=== PATIENT | male | born 1955 | race Caucasian/White ===

== ENCOUNTER 2017-05-30 08:22 | Inpatient (IN) | payer BC, OTHER ==
[2017-05-30] MEDS ORDERED: ACETAMINOPHEN TAB 500 MG TAB PO STA (08:43)
--- NOTE | 2017-05-30 08:47 | ED ---
General Adult HPI - General Chief complaint: Upper Respiratory Infection Stated complaint: Chills,non productive cough Time Seen by Provider: 05/30/17 08:35 Source: patient, RN notes reviewed Mode of arrival: ambulatory Limitations: no limitations - History of Present Illness Initial comments: Patient is a 61-year-old male presents to the emergency room for evaluation. Patient states the past week he's been waking up with cold chills. Patient states that he's been having a worsening cough over the past week. Patient states he usually has a smoker's cough for the past 20 years. Patient does admit that he smokes about a pack per day. Patient states the cough is very dry. Patient states he woke up this morning feeling very cold with chills. Patient states he tried to take a bath with no relief of symptoms. Patient arrived here with a fever of 102.3F. Patient denies taking anything for his symptoms. Patient states he woke up and he felt like he was short of breath and increased congestion so he decided to come in to be evaluated. Patient does state that he had a heart attack last year. Patient takes a baby aspirin per day plus Plavix. Patient states he did not take his medications this morning. Patient denies headache. Patient states he has nasal congestion. Patient denies chest pain. Patient denies nausea or vomiting. Patient denies ear pain or throat pain. - Related Data Home Medications Medication Instructions Recorded Confirmed Aspirin [Adult Low Dose Aspirin EC] 81 mg PO HS 05/30/17 05/30/17 Atorvastatin [Lipitor] 40 mg PO HS 05/30/17 05/30/17 Clopidogrel [Plavix] 75 mg PO HS 05/30/17 05/30/17 Lisinopril [Prinivil] 5 mg PO DAILY 05/30/17 05/30/17 Metoprolol Tartrate 25 mg PO BID 05/30/17 05/30/17 [place]-3/Dha/Epa/Fish Oil [Fish Oil 1 cap PO HS 05/30/17 05/30/17 500 mg Softgel] Omeprazole [PriLOSEC] 40 mg PO DAILY 05/30/17 05/30/17 Vitamin E 100 unit PO HS 05/30/17 05/30/17 Allergies Allergy/AdvReac Type Severity Reaction Status Date / Time No Known Allergies Allergy Verified 05/30/17 08:45 Review of Systems ROS Statement: Those systems with pertinent positive or pertinent negative responses have been documented in the HPI. ROS Other: All systems not noted in ROS Statement are negative. Past Medical History Past Medical History: Coronary Artery Disease (CAD), Myocardial Infarction (AK) , Pneumonia History of Any Multi-Drug Resistant Organisms: None Reported Past Surgical History: Back Surgery, Heart Catheterization With Stent Past Psychological History: No Psychological Hx Reported Smoking Status: Current every day smoker Past Alcohol Use History: None Reported Past Drug Use History: None Reported - Past Family History Father Family Medical History: Myocardial Infarction ([place]), Pneumonia Additional Family Medical History / Comment(s): Father at the age of 52 yrs from a AK/pneumonia. Mother Family Medical History: Myocardial Infarction (AK) Additional Family Medical History / Comment(s): Mother at the age of 67yrs from a AK. General Exam - General Exam Comments Initial Comments: Sitting exam room, no acute distress. Limitations: no limitations General appearance: alert, in no apparent distress Head exam: Present: atraumatic, normocephalic, normal inspection Eye exam: Present: normal appearance, PERRL, EOMI Pupils: Present: normal accommodation ENT exam: Present: normal exam, normal oropharynx, mucous membranes moist, TM's normal bilaterally, normal external ear exam Neck exam: Present: normal inspection, full ROM. Absent: tenderness, lymphadenopathy Respiratory exam: Present: normal lung sounds bilaterally. Absent: respiratory distress Cardiovascular Exam: Present: normal rhythm, tachycardia, normal heart sounds GI/Abdominal exam: Present: soft, normal bowel sounds. Absent: distended, tenderness, guarding, rebound, rigid Extremities exam: Present: normal inspection Back exam: Present: normal inspection Neurological exam: Present: alert, oriented X3, CN II-XII intact, normal gait Psychiatric exam: Present: normal affect, normal mood Skin exam: Present: warm, dry, intact, normal color. Absent: rash Course Vital Signs 05/30/17 05/30/17 05/30/17 08:29 08:59 09:29 Temperature 102.2 F H Pulse Rate 125 H 118 H Respiratory 24 Rate Blood Pressure 116/67 116/61 131/65 O2 Sat by Pulse 96 96 Oximetry 05/30/17 05/30/17 05/30/17 10:29 11:12 11:27 Temperature 101.4 F H Pulse Rate 110 H 112 H Respiratory 18 Rate Blood Pressure 108/59 110/65 O2 Sat by Pulse 95 95 Oximetry 05/30/17 12:58 Temperature 102.3 F H Pulse Rate 96 Respiratory 16 Rate Blood Pressure 110/69 O2 Sat by Pulse 98 Oximetry EKG Findings - EKG Comments: EKG Findings:: Sinus tachycardia, ventricular rate 119 bpm, NV interval 148 ms, QRS duration 92 ms, QT/QTC to 304/427 ms Medical Decision Making - Medical Decision Making Patient is a 61-year-old male presents to the emergency room for evaluation of fever, congestion and cough. WBC elevated. Lactate elevated. Temperature on arrival was 102.3F. Triangular opacity noted on chest x-ray. CT angios chest ordered to rule out pulmonary embolism. No pulmonary embolism noted. Patient will be treated for pneumonia. Case discussed with Dr. Sales. Dr. Sales discussed case with Dr. Nixon who agreed to admit patient. - Lab Data Result diagrams: 05/30/17 09:06 05/30/17 09:06 Lab Results 05/30/17 05/30/17 05/30/17 Range/Units 09:06 09:06 09:06 WBC 19.6 H (3.8-10.6) k/uL RBC 5.68 (4.30-5.90) m/uL Hgb 15.1 (13.0-17.5) gm/dL Hct 45.1 (39.0-53.0) % MCV 79.4 L (80.0-100.0) fL MCH 26.6 (25.0-35.0) pg MCHC 33.6 (31.0-37.0) g/dL RDW 14.3 (11.5-15.5) % Plt Count 248 (150-450) k/uL Neutrophils % 89 % Lymphocytes % 4 % Monocytes % 5 % Eosinophils % 0 % Basophils % 0 % Neutrophils # 17.5 H (1.3-7.7) k/uL Lymphocytes # 0.9 L (1.0-4.8) k/uL Monocytes # 1.0 (0-1.0) k/uL Eosinophils # 0.0 (0-0.7) k/uL Basophils # 0.1 (0-0.2) k/uL PT (9.0-12.0) sec INR (<1.1) APTT (22.0-30.0) sec D-Dimer (<0.60) mg/L FEU Sodium 139 (137-145) mmol/L Potassium 4.0 (3.5-5.1) mmol/L Chloride 106 (98-107) mmol/L Carbon Dioxide 23 (22-30) mmol/L Anion Gap 10 mmol/L BUN 13 (9-20) mg/dL Creatinine 0.96 (0.66-1.25) mg/dL Est GFR (MDRD) Af Amer >60 (>60 ml/min/1.73 sqM) Est GFR (MDRD) Non-Af >60 (>60 ml/min/1.73 sqM) Glucose 129 H (74-99) mg/dL Plasma Lactic Acid Lee (0.7-2.0) mmol/L Calcium 8.9 (8.4-10.2) mg/dL Total Bilirubin 0.9 (0.2-1.3) mg/dL AST 21 (17-59) U/L ALT 30 (21-72) U/L Alkaline Phosphatase 83 (38-126) U/L Total Creatine Kinase 152 (55-170) U/L CK-MB (CK-2) 0.6 (0.0-2.4) ng/mL CK-MB (CK-2) Rel Index 0.4 Troponin I <0.012 (0.000-0.034) ng/mL Total Protein 7.1 (6.3-8.2) g/dL Albumin 4.0 (3.5-5.0) g/dL Urine Color Urine Appearance (Clear) Urine pH (5.0-8.0) Ur Specific [place] (1.001-1.035) Urine Protein (Negative) Urine Glucose (UA) (Negative) Urine Ketones (Negative) Urine Blood (Negative) Urine Nitrite (Negative) Urine Bilirubin (Negative) Urine Urobilinogen (<2.0) mg/dL Ur Leukocyte Esterase (Negative) Urine RBC (0-5) /hpf Urine WBC (0-5) /hpf Urine Mucus (None) /hpf 05/30/17 05/30/17 05/30/17 Range/Units 09:06 09:06 09:06 WBC (3.8-10.6) k/uL RBC (4.30-5.90) m/uL Hgb (13.0-17.5) gm/dL Hct (39.0-53.0) % MCV (80.0-100.0) fL MCH (25.0-35.0) pg MCHC (31.0-37.0) g/dL RDW (11.5-15.5) % Plt Count (150-450) k/uL Neutrophils % % Lymphocytes % % Monocytes % % Eosinophils % % Basophils % % Neutrophils # (1.3-7.7) k/uL Lymphocytes # (1.0-4.8) k/uL Monocytes # (0-1.0) k/uL Eosinophils # (0-0.7) k/uL Basophils # (0-0.2) k/uL PT 12.1 H (9.0-12.0) sec INR 1.2 (<1.1) APTT 26.2 (22.0-30.0) sec D-Dimer 0.85 H (<0.60) mg/L FEU Sodium (137-145) mmol/L Potassium (3.5-5.1) mmol/L Chloride (98-107) mmol/L Carbon Dioxide (22-30) mmol/L Anion Gap mmol/L BUN (9-20) mg/dL Creatinine (0.66-1.25) mg/dL Est GFR (MDRD) Af Amer (>60 ml/min/1.73 sqM) Est GFR (MDRD) Non-Af (>60 ml/min/1.73 sqM) Glucose (74-99) mg/dL Plasma Lactic Acid Lee 2.3 H* (0.7-2.0) mmol/L Calcium (8.4-10.2) mg/dL Total Bilirubin (0.2-1.3) mg/dL AST (17-59) U/L ALT (21-72) U/L Alkaline Phosphatase (38-126) U/L Total Creatine Kinase (55-170) U/L CK-MB (CK-2) (0.0-2.4) ng/mL CK-MB (CK-2) Rel Index Troponin I (0.000-0.034) ng/mL Total Protein (6.3-8.2) g/dL Albumin (3.5-5.0) g/dL Urine Color Urine Appearance (Clear) Urine pH (5.0-8.0) Ur Specific [place] (1.001-1.035) Urine Protein (Negative) Urine Glucose (UA) (Negative) Urine Ketones (Negative) Urine Blood (Negative) Urine Nitrite (Negative) Urine Bilirubin (Negative) Urine Urobilinogen (<2.0) mg/dL Ur Leukocyte Esterase (Negative) Urine RBC (0-5) /hpf Urine WBC (0-5) /hpf Urine Mucus (None) /hpf 05/30/17 Range/Units 09:33 WBC (3.8-10.6) k/uL RBC (4.30-5.90) m/uL Hgb (13.0-17.5) gm/dL Hct (39.0-53.0) % MCV (80.0-100.0) fL MCH (25.0-35.0) pg MCHC (31.0-37.0) g/dL RDW (11.5-15.5) % Plt Count (150-450) k/uL Neutrophils % % Lymphocytes % % Monocytes % % Eosinophils % % Basophils % % Neutrophils # (1.3-7.7) k/uL Lymphocytes # (1.0-4.8) k/uL Monocytes # (0-1.0) k/uL Eosinophils # (0-0.7) k/uL Basophils # (0-0.2) k/uL PT (9.0-12.0) sec INR (<1.1) APTT (22.0-30.0) sec D-Dimer (<0.60) mg/L FEU Sodium (137-145) mmol/L Potassium (3.5-5.1) mmol/L Chloride (98-107) mmol/L Carbon Dioxide (22-30) mmol/L Anion Gap mmol/L BUN (9-20) mg/dL Creatinine (0.66-1.25) mg/dL Est GFR (MDRD) Af Amer (>60 ml/min/1.73 sqM) Est GFR (MDRD) Non-Af (>60 ml/min/1.73 sqM) Glucose (74-99) mg/dL Plasma Lactic Acid Lee (0.7-2.0) mmol/L Calcium (8.4-10.2) mg/dL Total Bilirubin (0.2-1.3) mg/dL AST (17-59) U/L ALT (21-72) U/L Alkaline Phosphatase (38-126) U/L Total Creatine Kinase (55-170) U/L CK-MB (CK-2) (0.0-2.4) ng/mL CK-MB (CK-2) Rel Index Troponin I (0.000-0.034) ng/mL Total Protein (6.3-8.2) g/dL Albumin (3.5-5.0) g/dL Urine Color Yellow Urine Appearance Clear (Clear) Urine pH 5.5 (5.0-8.0) Ur Specific [place] 1.018 (1.001-1.035) Urine Protein Negative (Negative) Urine Glucose (UA) Negative (Negative) Urine Ketones Negative (Negative) Urine Blood Small H (Negative) Urine Nitrite Negative (Negative) Urine Bilirubin Negative (Negative) Urine Urobilinogen <2.0 (<2.0) mg/dL Ur Leukocyte Esterase Negative (Negative) Urine RBC 8 H (0-5) /hpf Urine WBC 1 (0-5) /hpf Urine Mucus Rare H (None) /hpf - Radiology Data Radiology results: report reviewed, image reviewed Disposition Clinical Impression: Pneumonia Disposition: ADMITTED IP TO THIS [facility] Condition: Stable Decision Date: 05/30/17
[2017-05-30] MEDS: SODIUM CHLORIDE 0.9% 500 ML IV SCH ×2 (09:18→11:19)
[2017-05-30 09:33] LABS: Basophils # (A) 0.1 k/uL (0-0.2); Basophils % (A) 0 %; CH 26.6; CHCM 33.6; Eosinophils % (A) 0 %; HCT 45.1 % (39.0-53.0); HDW 2.42; HGB 15.1 gm/dL (13.0-17.5); Luc # (Auto) 0.16; Luc % (Auto) 1; Lymphocytes # (A) 0.9 k/uL (1.0-4.8); Lymphocytes % (A) 4 %; MCH 26.6 pg (25.0-35.0); MCHC 33.6 g/dL (31.0-37.0); MCV 79.4 fL (80.0-100.0); Mean Platelet Volume 8.9; Monocytes % (A) 5 %; Neutrophils # (A) 17.5 k/uL (1.3-7.7); Neutrophils % (A) 89 %; RBC 5.68 m/uL (4.30-5.90); RDW 14.3 % (11.5-15.5); WBC 19.6 k/uL (3.8-10.6); WBC (Perox) 19.21
[2017-05-30 09:40] LABS: ALT 30 U/L (21-72); AST 21 U/L (17-59); Alkaline Phosphatase 83 U/L (38-126); Anion Gap 10 mmol/L; Blood Urea Nitrogen 13 mg/dL (9-20); Calcium 8.9 mg/dL (8.4-10.2); Carbon Dioxide 23 mmol/L (22-30); Chloride 106 mmol/L (98-107); Glucose 129 mg/dL (74-99); Non-African American GFR(MDRD) >60 (>60 ml/min/1.73 sqM); Sodium 139 mmol/L (137-145); Total Bilirubin 0.9 mg/dL (0.2-1.3); Total Protein 7.1 g/dL (6.3-8.2)
[2017-05-30 09:48] LABS: INR 1.2 (<1.1); Partial Thromboplastin Time 26.2 sec (22.0-30.0); Prothrombin Time 12.1 sec (9.0-12.0)
[2017-05-30 10:04] LABS: Appearance,Urine Clear (Clear); Bilirubin,Urine Negative (Negative); Glucose,Urine (UA) Negative (Negative); Ketones,Urine Negative (Negative); Leukocyte Esterase,Urine Negative (Negative); Mucus,Urine Rare /hpf; Nitrite,Urine Negative (Negative); PH, Urine 5.5 (5.0-8.0); Particle Count 1473; Protein,Urine Negative (Negative); RBC,Urine 8 /hpf (0-5); Specific Gravity,Urine 1.018 (1.001-1.035); UA Billing (MACRO vs. MICRO) MICRO; Urobilinogen,Urine <2.0 mg/dL (<2.0); WBC,Urine 1 /hpf (0-5)
--- NOTE | 2017-05-30 10:09 | XR ---
EXAMINATION TYPE: XR chest 2V DATE OF EXAM: 05/30/2017 COMPARISON: NONE HISTORY: Fever 102 degrees with shortness of breath. TECHNIQUE: Frontal and lateral views of the chest are obtained. FINDINGS: There is triangular shaped opacity anterior lung base on lateral view less well seen on fr ontal view. No large pleural effusion or pneumothorax is present bilaterally. The cardiac silhouette size is within normal limits. The osseous structures are intact. IMPRESSION: Nonspecific triangular shaped opacity. Area of acute infiltrate and/or atelectasis canno t be excluded without prior comparison.
[2017-05-30] MEDS ORDERED: LEVOFLOXACIN 750MG-D5W PMX 750 MG in DEXTROSE/WATER 1 150ML.BAG IVPB STA (10:32)
[2017-05-30] MEDS ORDERED: IPRATROPIUM-ALBUTEROL 3 ML NEB INHALATION PRN (10:41)
[2017-05-30] MEDS ORDERED: PNEUMONIA PROTOCOL UTILIZED 1 EACH MISC PO PRN (10:41)
[2017-05-30] MEDS ORDERED: RX INFO: IV CONTRAST WAS GIVEN 1 EACH MISC MISCELLANE PRN ×2 (10:46→14:47)
[2017-05-30] MEDS ORDERED: SODIUM CHLORIDE 0.9% 2,000 ML IV ONE (10:54)
--- NOTE | 2017-05-30 11:33 | CT ---
EXAMINATION TYPE: CT angio chest DATE OF EXAM: 05/30/2017 COMPARISON: Chest x-ray earlier today HISTORY: Chills, non productive cough, fever, and tachycardia per patient. Chest pain per order. CT DLP: 649.1 mGycm. Automated Exposure Control for Dose Reduction was Utilized. CONTRAST: CTA scan of the thorax is performed with IV Contrast, patient injected with 100 mL of Omnipaque 350, pulmonary embolism protocol. MIP Images are created on CT scanner and reviewed. FINDINGS: LUNGS: Underlying emphysematous change is felt present with subpleural bleb and bulla formation and r eticulation in bilateral upper lobes. A few scattered small nodules are seen, for reference is 5 x 3 mm nodule on axial image 80 right middle lobe. No pleural effusion or pneumothorax is present bilater ally. No suspicious groundglass opacity or consolidation is seen. Triangular shape opacity correlates with prominent right anterior pericardial fat pad. MEDIASTINUM: There is markedly suboptimal bolus with most of injected contrast in left heart system a nd pooling in left brachiocephalic vein and SVC. Exam is essentially nondiagnostic for pulmonary embo lism There are no greater than 1 cm hilar or mediastinal lymph nodes. No cardiomegaly or pericardia l effusion is seen. Coronary artery calcification proximal LAD near axial image 78 is noted. OTHER: Dependent density in gallbladder favor small stones or sludge near axial image 164. Liver is d iffusely low dense suggesting fatty infiltration. There is 2.4 cm simple appearing cyst laterally mid pole level left kidney on axial image 172. IMPRESSION: 1. Nondiagnostic for pulmonary embolism. 2. Mild underlying emphysematous change without suspicious acute pulmonary process.
[2017-05-30] MEDS: LISINOPRIL 5 MG TAB PO SCH (11:40)
[2017-05-30] MEDS: CLOPIDOGREL 75 MG TAB PO SCH (11:43)
[2017-05-30] MEDS ORDERED: BUTALB/APAP/CAFF 50-325-40MG TAB PO STA (11:57)
--- NOTE | 2017-05-30 13:04 | P.HPIM ---
History of Present Illness H&P Date: 05/30/17 Chief Complaint: Sepsis, pneumonia, COPD, CAD, hypertension 61-year-old male one of Dr. Marshall patient with past medical history of CAD post NC angioplasty and stent placement last year history of chronic smoking history of hypertension hyperlipidemia who apparently did not feel good in the last 24 hours developed to have fever and chills on Tuesday symptoms become much worse patient is having significant shortness of breath with dyspnea ended up coming to [facility] department at [facility] where was seen and evaluated his temperature continued be continue to be 102. With elevated d-dimer ended up going for CTA result came back negative for PE. Patient clinically has pneumonia cannot be find on chest x-ray or CAT scan his lactic acid slightly but elevated as well and looks septic. Blood culture was done patient will be started on gram-negative coverage with empiric antibiotics was start him on updraft treatment O2m be hospitalized consult infectious disease awaiting for the final blood culture. Urine came back negative and examining patient all over his body could not feel her find any spot of infection cellulitis abscess or lymph node enlargement. Review of Systems Constitutional: Reports anorexia, Reports chronic pain, Reports daytime sleepiness, Reports fatigue, Reports malaise, Reports night sweats, Reports poor appetite, Reports weakness, Reports weight loss, Denies as per HPI, Denies chills, Denies chronic headaches, Denies fever, Denies lethargy, Denies sweats, Denies weight gain Eyes: bilateral as per HPI Ears: bilateral: decreased hearing Ears, nose, mouth and throat: Reports ant. neck pain, Reports dental pain, Reports headache, Reports nasal congestion, Reports nasal discharge, Reports sinus pain, Reports sinus pressure, Reports swelling in mouth, Reports swelling in throat, Reports sore throat, Reports voice changes, Denies as per HPI, Denies bleeding gums, Denies dysphagia, Denies epistaxis, Denies hoarseness, Denies mouth pain, Denies neck fullness/pressure, Denies neck lump, Denies nose pain, Denies odynophagia, Denies post-nasal drip, Denies vertigo Cardiovascular: Reports chest pain, Reports claudication, Reports decreased exercise tolerance, Reports lightheadedness, Reports orthopnea, Reports palpitations, Reports paroxysmal nocturnal dyspnea, Denies as per HPI, Denies dyspnea on exertion, Denies edema, Denies high blood pressure, Denies irregular heart beat, Denies leg edema, Denies phlebitis, Denies rapid heart beat, Denies shortness of breath, Denies syncope Respiratory: Reports congestion, Reports cough, Reports cough with sputum, Reports dyspnea, Reports excessive sputum, Reports pain on inspiration, Reports respiratory infections, Reports wheezing, Denies as per HPI, Denies hemoptysis, Denies home oxygen, Denies pain, Denies pleurisy, Denies sleep apnea, Denies snoring Gastrointestinal: Reports abdominal pain, Reports bloating, Reports constipation , Reports dyspepsia, Reports indigestion, Reports nausea, Reports vomiting, Denies as per HPI, Denies belching, Denies BRBPR, Denies change in bowel habits , Denies coffee ground emesis, Denies diarrhea, Denies early satiety, Denies excessive gas, Denies heartburn, Denies hematemesis, Denies hematochezia, Denies jaundice, Denies lactose intolerance, Denies loss of appetite, Denies melena Genitourinary: Reports hematuria, Reports nocturia, Reports polyuria, Denies as per HPI, Denies decreased libido, Denies difficulties fathering child, Denies discharge, Denies dysuria, Denies erectile dysfunction, Denies flank pain, Denies genital pain, Denies genital sores, Denies impotence, Denies incontinence , Denies kidney stones, Denies testicular lump, Denies testicular pain, Denies urinary frequency, Denies urinary hesitancy, Denies urinary retention Musculoskeletal: Reports loss of height, Reports low back pain, Reports myalgias , Reports neck pain, Denies as per HPI, Denies arm numbness/tingling, Denies atrophy, Denies fractures, Denies frequent falls, Denies gait dysfunction, Denies hot joints, Denies leg numbness/tingling, Denies limitation of motion, Denies morning stiffness, Denies muscle cramps, Denies muscle weakness, Denies neck stiffness, Denies prior amputations, Denies redness of joints, Denies shooting arm pain, Denies shooting leg pain Integumentary: Reports pruritus, Reports rash, Denies as per HPI, Denies acne, Denies boils, Denies brittle nails, Denies change in hair/nails, Denies color changes, Denies darkening of skin, Denies depigmentation, Denies dryness, Denies foot/leg ulcers, Denies growths, Denies hirsutism, Denies lesions, Denies onychomycosis, Denies sores, Denies striae, Denies unusual bruising, Denies wounds Neurological: Denies as per HPI, Denies aphasia, Denies ataxia, Denies balance difficulties, Denies burning pain, Denies change in mentation, Denies change in smell/taste, Denies change in speech, Denies confusion, Denies convulsions, Denies double vision, Denies gait dysfunction, Denies head injury, Denies headaches, Denies hearing difficulties, Denies lack of coordination, Denies loss of vision, Denies memory loss, Denies migraines, Denies motor disturbance, Denies numbness, Denies paralysis, Denies paresthesias, Denies seizures, Denies sensory deficit, Denies spasticity, Denies syncope, Denies tic, Denies tingling , Denies transient paralysis, Denies tremors, Denies vertigo, Denies weakness, Denies visual changes Psychiatric: Reports anhedonia, Reports anxiety, Denies as per HPI, Denies anxiety attacks, Denies change in appetite, Denies change in libido, Denies change in sleep habits, Denies confusion, Denies depression, Denies difficulty concentrating, Denies disorientation, Denies hallucinations, Denies hopelessness , Denies hypersomnia, Denies insomnia, Denies irritability, Denies memory loss, Denies mood swings, Denies paranoia, Denies sadness/tearfulness, Denies sleep disturbances, Denies suicidal ideation Endocrine: Reports fatigue, Reports flushing, Reports heat intolerance, Denies as per HPI, Denies cold intolerance, Denies deepening of the voice, Denies excessive sweating, Denies excessive thirst, Denies high blood sugars, Denies increase in ring/shoe/hat size, Denies low blood sugars, Denies nocturia, Denies palpitations, Denies polydipsia, Denies polyphagia, Denies polyuria, Denies proptosis, Denies recent glucocorticoid use, Denies thyroid mass, Denies weight change Hematologic/Lymphatic: Reports easy bruising, Denies as per HPI, Denies easy bleeding, Denies lymphadenopathy, Denies lymphedema, Denies thrombophilia Allergic/Immunologic: Reports allergic rhinitis, Denies as per HPI, Denies anaphylaxis, Denies angioedema, Denies gluten intolerance, Denies persistent infections, Denies seasonal allergies, Denies urticaria, Denies wheezing Past Medical History Past Medical History: Coronary Artery Disease (CAD), Myocardial Infarction (NC) , Pneumonia History of Any Multi-Drug Resistant Organisms: None Reported Past Surgical History: Back Surgery, Heart Catheterization With Stent Past Psychological History: No Psychological Hx Reported Smoking Status: Current every day smoker Past Alcohol Use History: None Reported Past Drug Use History: None Reported Medications and Allergies Home Medications Medication Instructions Recorded Confirmed Type Aspirin [Adult Low Dose Aspirin EC] 81 mg PO HS 05/30/17 05/30/17 History Atorvastatin [Lipitor] 40 mg PO HS 05/30/17 05/30/17 History Clopidogrel [Plavix] 75 mg PO HS 05/30/17 05/30/17 History Lisinopril [Prinivil] 5 mg PO DAILY 05/30/17 05/30/17 History Metoprolol Tartrate 25 mg PO BID 05/30/17 05/30/17 History [place]-3/Dha/Epa/Fish Oil [Fish Oil 1 cap PO HS 05/30/17 05/30/17 History 500 mg Softgel] Omeprazole [PriLOSEC] 40 mg PO DAILY 05/30/17 05/30/17 History Vitamin E 100 unit PO 05/30/17 05/30/17 History Allergies Allergy/AdvReac Type Severity Reaction Status Date / Time No Known Allergies Allergy Verified 05/30/17 08:45 Physical Exam Vitals: Vital Signs Temp Pulse Resp BP Pulse Ox 05/30/17 11:27 101.4 F H 05/30/17 11:12 112 H 18 110/65 95 05/30/17 10:29 110 H 108/59 95 05/30/17 09:29 131/65 05/30/17 08:59 118 H 116/61 96 05/30/17 08:29 102.2 F H 125 H 24 116/67 96 Intake and Output 05/29/17 05/30/17 05/30/17 22:59 06:59 14:59 Other: Weight 111.13 kg Patient Weight 05/31/17 06:59 Weight 111.13 kg - Constitutional General appearance: no average body habitus, cooperative, no disheveled, no mild distress, no morbidly obese, no acute distress, no obese, no severe distress, no thin - EENT Eyes: no abnormal pupil, no anicteric sclerae, no disc margins sharp, no edentulous, no EOMI, no PERRLA, no fundus normal, no photophobia, no dentition normal, no poor dentition, no ptosis, no scleral icterus, normal appearance ENT: no hard of hearing, no hearing grossly normal, no NA/AT, normal oropharynx , no other, no pharyngeal erythema, no thrush, no tonsillar exudates, no tonsillar swelling Ears: bilateral: normal, bulging - Neck Neck: no lymphadenopathy, normal ROM, no other, no rigidity, no stridor, no thyromegaly Carotids: bilateral: upstroke normal Thyroid: bilateral: normal size - Respiratory Respiratory: bilateral: diminished, dullness, rales, rhonchi, wheezing - Cardiovascular Rhythm: regular Heart sounds: normal: S1, S2 Abnormal Heart Sounds: systolic murmur - Gastrointestinal General gastrointestinal: no absent bowel sounds, decreased bowel sounds, distended, no hepatomegaly, no hyperactive bowel sounds, no normal bowel sounds , no organomegaly, no rigid, no scaphoid, no soft, no splenomegaly, no tenderness, no umbilical hernia, no ventral hernia - Integumentary Integumentary: no calor, no cellulitis, no cyanotic, no decreased turgor, no flushed, no jaundiced, normal, no normal turgor, pale, rash, no ulcer - Neurologic Neurologic: CNII-XII intact - Musculoskeletal Musculoskeletal: gait normal, generalized weakness, strength equal bilaterally, no right sided weakness, no left sided weakness - Psychiatric Psychiatric: A&O x's 3, appropriate affect, no intact judgment & insight Results CBC & Chem 7: 05/30/17 09:06 05/30/17 09:06 Labs: Abnormal Lab Results - Last 24 Hours (Table) 05/30/17 05/30/17 05/30/17 Range/Units 09:06 09:06 09:06 WBC 19.6 H (3.8-10.6) k/uL MCV 79.4 L (80.0-100.0) fL Neutrophils # 17.5 H (1.3-7.7) k/uL Lymphocytes # 0.9 L (1.0-4.8) k/uL PT (9.0-12.0) sec D-Dimer (<0.60) mg/L FEU Glucose 129 H (74-99) mg/dL Plasma Lactic Acid Lee 2.3 H* (0.7-2.0) mmol/L Urine Blood (Negative) Urine RBC (0-5) /hpf Urine Mucus (None) /hpf 05/30/17 05/30/17 05/30/17 Range/Units 09:06 09:06 09:33 WBC (3.8-10.6) k/uL MCV (80.0-100.0) fL Neutrophils # (1.3-7.7) k/uL Lymphocytes # (1.0-4.8) k/uL PT 12.1 H (9.0-12.0) sec D-Dimer 0.85 H (<0.60) mg/L FEU Glucose (74-99) mg/dL Plasma Lactic Acid Lee (0.7-2.0) mmol/L Urine Blood Small H (Negative) Urine RBC 8 H (0-5) /hpf Urine Mucus Rare H (None) /hpf Thrombosis Risk Factor Assmnt - DVT/VTE Prophylaxis DVT/VTE Prophylaxis: Pharmacologic Prophylaxis ordered, Mechanical Prophylaxis ordered Assessment and Plan Plan: 1 sepsis with SIRS: Not a clear etiology so far but most likely pneumonia in origin awaiting for the final blood culture patient will be on Zosyn and Levaquin we'll consult infectious disease continue to watch his culture sputum and urine culture be done as well. 2 clinical pneumonitis: Finding on a clinical basis mostly in the bases both side especially in the right side patient be in gram if coverage continue updrafts and O2. 3 COPD with mild exacerbation: With patient's current condition patient will be on smaller dose of Solu-Medrol at 40 mg every 8 along with Pulmicort and DuoNeb continue O2 as well my consult pulmonary. 4 CAD post NC post angioplasty and stent placement patient is seen cardiology regular basis continue secondary prevention with metoprolol lisinopril Plavix and Lipitor. 5 hypertension: Remain well controlled on Prinivil 5 mg a day and metoprolol 25 g twice a day. 6 hyperlipidemia: Continue Lipitor at 40 mg daily. 7 GI prophylaxis/severe GERD patient remain on Prilosec 40 mg a day. 8 hyperglycemia: Continue patient on Accu-Chek with sliding scales coverage. 9 hematuria: Not a clear etiology again will do urine culture and the order abdominal ultrasound for any finding of abscess infection or stone. 10 GI prophylaxis: On Prilosec. 11 DVT prophylaxis: Patient will be on Lovenox 40 mg subcutaneous daily. CODE STATUS: Full code. Expectation from this admission: Patient be in the hospital for more than 2 nights.
[2017-05-30] MEDS ORDERED: IBUPROFEN 600 MG TAB PO STA (13:14)
[2017-05-30] MEDS ORDERED: IV VANCOMYCIN PER PHARMACY 1 EACH MISC MISCELLANE PRN (13:48)
[2017-05-30] MEDS ORDERED: VANCOMYCIN 2,250 MG in SODIUM CHLORIDE 0.9% 500 ML IVPB ONE (14:30)
--- NOTE | 2017-05-30 14:47 | P.CONS ---
History of Present Illness - Reason for Consult Consult date: 05/30/17 FUO - History of Present Illness This is a 61-year-old male patient that gives history that he has not been feeling well for the past 24 hours with fever and chill this started on Tuesday and continued to worsen with some shortness of breath. He also had an episode prior to this a few days ago and also had a fever at that time. Patient came into [facility] and was found to have a temperature of 102.2 and leukocytosis of 19.6. He underwent a chest x-ray and CTA of the chest that was nondiagnostic for pulmonary embolism. Mild underlying emphysematous change without suspicious acute pulmonary process. His urinalysis was positive for small amount of blood with RBCs of 8. Initial lactic acid was 2.3 and repeat 1.6. Patient was started on Levaquin and admitted to the [facility] floor. Blood culture has been status received. Urine culture is status received. Patient does state that he has a small amount of sputum production. Review of Systems All systems: negative Constitutional: Reports chills, Reports fatigue, Reports fever, Reports malaise Eyes: denies blurred vision, denies pain Ears, nose, mouth and throat: Denies dental pain, Denies headache, Denies mouth pain, Denies swelling in throat, Denies sore throat, Denies vertigo Cardiovascular: Reports shortness of breath, Denies chest pain, Denies edema, Denies leg edema, Denies lightheadedness, Denies palpitations, Denies paroxysmal nocturnal dyspnea, Denies syncope Respiratory: Reports cough with sputum, Reports dyspnea, Denies cough, Denies excessive sputum, Denies hemoptysis, Denies home oxygen, Denies pain on inspiration, Denies wheezing Gastrointestinal: Denies abdominal pain, Denies diarrhea, Denies nausea, Denies vomiting Genitourinary: Denies dysuria Musculoskeletal: Denies myalgias Integumentary: Denies pruritus, Denies rash Neurological: Denies numbness, Denies weakness Psychiatric: Denies anxiety, Denies depression Endocrine: Denies fatigue, Denies weight change Past Medical History Past Medical History: Coronary Artery Disease (CAD), Myocardial Infarction (NC) , Pneumonia Additional Past Medical History / Comment(s): Pneumonia twice as a child. Last Myocardial Infarction Date:: 2015 History of Any Multi-Drug Resistant Organisms: None Reported Past Surgical History: Back Surgery, Heart Catheterization With Stent Additional Past Surgical History / Comment(s): PCI with stent in 2016 at [facility], colonoscopy. Past Anesthesia/Blood Transfusion Reactions: No Reported Reaction, Motion Sickness Date of Last Stent Placement:: 2015 Smoking Status: Current every day smoker - Past Family History Father Family Medical History: Myocardial Infarction (NC), Pneumonia Additional Family Medical History / Comment(s): Father at the age of 52 yrs from a NC/pneumonia. Mother Family Medical History: Myocardial Infarction (NC) Additional Family Medical History / Comment(s): Mother at the age of 67yrs from a NC. Medications and Allergies Home Medications Medication Instructions Recorded Confirmed Type Aspirin [Adult Low Dose Aspirin EC] 81 mg PO HS 05/30/17 05/30/17 History Atorvastatin [Lipitor] 40 mg PO HS 05/30/17 05/30/17 History Clopidogrel [Plavix] 75 mg PO HS 05/30/17 05/30/17 History Lisinopril [Prinivil] 5 mg PO DAILY 05/30/17 05/30/17 History Metoprolol Tartrate 25 mg PO BID 05/30/17 05/30/17 History [place]-3/Dha/Epa/Fish Oil [Fish Oil 1 cap PO HS 05/30/17 05/30/17 History 500 mg Softgel] Omeprazole [PriLOSEC] 40 mg PO DAILY 05/30/17 05/30/17 History Vitamin E 100 unit PO HS 05/30/17 05/30/17 History Allergies Allergy/AdvReac Type Severity Reaction Status Date / Time No Known Allergies Allergy Verified 05/30/17 08:45 Physical Exam Vitals: Vital Signs Temp Pulse Resp BP Pulse Ox 05/30/17 12:58 102.3 F H 96 16 110/69 98 05/30/17 11:27 101.4 F H 05/30/17 11:12 112 H 18 110/65 95 05/30/17 10:29 110 H 108/59 95 05/30/17 09:29 131/65 05/30/17 08:59 118 H 116/61 96 05/30/17 08:29 102.2 F H 125 H 24 116/67 96 Intake and Output 05/29/17 05/30/17 05/30/17 22:59 06:59 14:59 Intake Total 1000 Balance 1000 Intake: Amount of Fluid Infused ( 1000 ml) Other: Weight 111.13 kg Patient Weight 05/31/17 06:59 Weight 111.13 kg Gen: This is a 61-year-old male. He is on this stretcher in ER and appears to be comfortable and in no acute distress. HEENT: Head is atraumatic, normocephalic. Pupils equal, round. Sclerae is anicteric. Conjunctiva pink. Mucous members of the mouth are moist. No oropharyngeal inflammation. NECK: Supple. No JVD. No lymphadenopathy. No thyromegaly. LUNGS: Clear to auscultation. No wheezes or rhonchi. No intercostal retractions. HEART: Regular rate and rhythm. No murmur. ABDOMEN: Soft. Bowel sounds are present. No masses. No tenderness. No CVA tenderness EXTREMITIES: No pedal edema. No calf tenderness. No calf tenderness. NEUROLOGICAL: Patient is awake, alert and oriented x3. Cranial nerves 2 through 12 are grossly intact. Results Results: Laboratory Results WBC 19.6 k/uL (3.8-10.6) H 05/30/17 09:06 RBC 5.68 m/uL (4.30-5.90) 05/30/17 09:06 Hgb 15.1 gm/dL (13.0-17.5) 05/30/17 09:06 Hct 45.1 % (39.0-53.0) 05/30/17 09:06 MCV 79.4 fL (80.0-100.0) L 05/30/17 09:06 MCH 26.6 pg (25.0-35.0) 05/30/17 09:06 MCHC 33.6 g/dL (31.0-37.0) 05/30/17 09:06 RDW 14.3 % (11.5-15.5) 05/30/17 09:06 Plt Count 248 k/uL (150-450) 05/30/17 09:06 Neutrophils % 89 % 05/30/17 09:06 Lymphocytes % 4 % 05/30/17 09:06 Monocytes % 5 % 05/30/17 09:06 Eosinophils % 0 % 05/30/17 09:06 Basophils % 0 % 05/30/17 09:06 Neutrophils # 17.5 k/uL (1.3-7.7) H 05/30/17 09:06 Lymphocytes # 0.9 k/uL (1.0-4.8) L 05/30/17 09:06 Monocytes # 1.0 k/uL (0-1.0) 05/30/17 09:06 Eosinophils # 0.0 k/uL (0-0.7) 05/30/17 09:06 Basophils # 0.1 k/uL (0-0.2) 05/30/17 09:06 PT 12.1 sec (9.0-12.0) H 05/30/17 09:06 INR 1.2 (<1.1) 05/30/17 09:06 APTT 26.2 sec (22.0-30.0) 05/30/17 09:06 D-Dimer 0.85 mg/L FEU (<0.60) H 05/30/17 09:06 Sodium 139 mmol/L (137-145) 05/30/17 09:06 Potassium 4.0 mmol/L (3.5-5.1) 05/30/17 09:06 Chloride 106 mmol/L (98-107) 05/30/17 09:06 Carbon Dioxide 23 mmol/L (22-30) 05/30/17 09:06 Anion Gap 10 mmol/L 05/30/17 09:06 BUN 13 mg/dL (9-20) 05/30/17 09:06 Creatinine 0.96 mg/dL (0.66-1.25) 05/30/17 09:06 Est GFR (MDRD) Af Amer >60 (>60 ml/min/1.73 sqM) 05/30/17 09:06 Est GFR (MDRD) Non-Af >60 (>60 ml/min/1.73 sqM) 05/30/17 09:06 Glucose 129 mg/dL (74-99) H 05/30/17 09:06 Plasma Lactic Acid Lee 1.6 mmol/L (0.7-2.0) 05/30/17 12:20 Calcium 8.9 mg/dL (8.4-10.2) 05/30/17 09:06 Total Bilirubin 0.9 mg/dL (0.2-1.3) 05/30/17 09:06 AST 21 U/L (17-59) 05/30/17 09:06 ALT 30 U/L (21-72) 05/30/17 09:06 Alkaline Phosphatase 83 U/L (38-126) 05/30/17 09:06 Total Protein 7.1 g/dL (6.3-8.2) 05/30/17 09:06 Albumin 4.0 g/dL (3.5-5.0) 05/30/17 09:06 Urine Color Yellow 05/30/17 09:33 Urine Appearance Clear (Clear) 05/30/17 09:33 Urine pH 5.5 (5.0-8.0) 05/30/17 09:33 Ur Specific [place] 1.018 (1.001-1.035) 05/30/17 09:33 Urine Protein Negative (Negative) 05/30/17 09:33 Urine Glucose (UA) Negative (Negative) 05/30/17 09:33 Urine Ketones Negative (Negative) 05/30/17 09:33 Urine Blood Small (Negative) H 05/30/17 09:33 Urine Nitrite Negative (Negative) 05/30/17 09:33 Urine Bilirubin Negative (Negative) 05/30/17 09:33 Urine Urobilinogen <2.0 mg/dL (<2.0) 05/30/17 09:33 Ur Leukocyte Esterase Negative (Negative) 05/30/17 09:33 Urine RBC 8 /hpf (0-5) H 05/30/17 09:33 Urine WBC 1 /hpf (0-5) 05/30/17 09:33 Urine Mucus Rare /hpf (None) H 05/30/17 09:33 CBC & Chem 7: 05/30/17 09:06 05/30/17 09:06 Labs: Abnormal Lab Results - Last 24 Hours (Table) 05/30/17 05/30/17 05/30/17 Range/Units 09:06 09:06 09:06 WBC 19.6 H (3.8-10.6) k/uL MCV 79.4 L (80.0-100.0) fL Neutrophils # 17.5 H (1.3-7.7) k/uL Lymphocytes # 0.9 L (1.0-4.8) k/uL PT (9.0-12.0) sec D-Dimer (<0.60) mg/L FEU Glucose 129 H (74-99) mg/dL Plasma Lactic Acid Lee 2.3 H* (0.7-2.0) mmol/L Urine Blood (Negative) Urine RBC (0-5) /hpf Urine Mucus (None) /hpf 05/30/17 05/30/17 05/30/17 Range/Units 09:06 09:06 09:33 WBC (3.8-10.6) k/uL MCV (80.0-100.0) fL Neutrophils # (1.3-7.7) k/uL Lymphocytes # (1.0-4.8) k/uL PT 12.1 H (9.0-12.0) sec D-Dimer 0.85 H (<0.60) mg/L FEU Glucose (74-99) mg/dL Plasma Lactic Acid Lee (0.7-2.0) mmol/L Urine Blood Small H (Negative) Urine RBC 8 H (0-5) /hpf Urine Mucus Rare H (None) /hpf Assessment and Plan Plan: This is a 61-year-old male who presented to the hospital with signs of sepsis with fever, leukocytosis without clear etiology. CTA of the chest ruled out pneumonia or pulmonary infection. He has been started on treatment for COPD exacerbation. It is noted that he does have some blood in his urine. He is currently on antibiotics the form of Levaquin which will be switched to vancomycin and Zosyn. A CAT scan of the abdomen and pelvis with contrast will be added for tomorrow. Urine culture and blood cultures have been obtained. Continue supportive care. Further conditions as patient progresses. The above dictated assessment and findings were discussed with Dr. Carlos. The impression and plan of care have been directed as dictated. Janay Wise nurse practitioner acting as scribe for Dr. Carlos.
[2017-05-30 15:19] LABS: Creatine Kinase 152 U/L (55-170)
[2017-05-30 15:32] LABS: Creatine Kinase MB 0.6 ng/mL (0.0-2.4); Troponin I <0.012 ng/mL (0.000-0.034)
[2017-05-30] MEDS: IPRATROPIUM-ALBUTEROL 3 ML NEB INHALATION SCH ×2 (15:38→19:56)
[2017-05-30] MEDS: ACETAMINOPHEN TAB 500 MG TAB PO PRN ×2 (16:43→23:51)
[2017-05-30] MEDS: PIPERACILLIN-TAZOBACTAM 3.375 GM in DEXTROSE/WATER 1 50ML.BAG IVPB SCH ×2 (18:24→23:46)
[2017-05-30] MEDS: BUDESONIDE 0.5 MG/2 ML NEBU INHALATION SCH (19:56)
[2017-05-30] MEDS: ATORVASTATIN 40 MG TAB PO SCH (20:15)
[2017-05-30] MEDS: SODIUM CHLORIDE 0.9% 1,000 ML IV SCH (20:15)
[2017-05-30] MEDS: METOPROLOL TARTRATE 25 MG TAB PO SCH (20:15)
[2017-05-30] MEDS: ASPIRIN 81 MG CHEW PO SCH (20:15)
--- NOTE | 2017-05-30 21:23 | P.CON ---
Consult Note - . Consult date: 05/30/17 Assessment/Plan:: This is a 61-year-old male patient that gives history that he has not been feeling well for the past 24 hours with fever and chill this started on Tuesday and continued to worsen with some shortness of breath. He also had an episode prior to this a few days ago and also had a fever at that time. Patient came into [facility] and was found to have a temperature of 102.2 and leukocytosis of 19.6. He underwent a chest x-ray and CTA of the chest that was nondiagnostic for pulmonary embolism. Mild underlying emphysematous change without suspicious acute pulmonary process. His urinalysis was positive for small amount of blood with RBCs of 8. Initial lactic acid was 2.3 and repeat 1.6. Patient was started on Levaquin and admitted to the [facility] floor. Blood culture has been status received. Urine culture is status received. Patient does state that he has a small amount of sputum production. Please see the consult note is dictated by nurse practitioner Mrs. Janay Wise. This is a pleasant 61-year-old gentleman was presenting with evidence of significant fever and chills. Met criteria for sepsis at admission, and continues to feel like he is having a fever. Workup is in progress. Computed tomography scan failed to reveal evidence of a pulmonary embolus or pneumonia. Given his ongoing fever a computed tomography scan of the abdomen and pelvis with oral IV contrast has been requested. The patient does relate that he generally takes either Lomotil or MiraLAX because of his bowel function. This has been going on for a little while. Denies any significant flank pain. Denies zulay dysuria or hematuria. Has noted microscopic hematuria has been found and the computed tomography scan will further evaluate the renal structures also. Intra-abdominal process as the etiology of his fever is of greatest concern at this point in time. Patient has no recent travels, animal exposures or other changes in his home environment that seem to be of concern. We'll monitor cultures and the imaging studies. All cultures in process antibiotic therapy is with piperacillin tazobactam and vancomycin for treatment of his current sepsis until we have further data. I agree with evaluation, assessment and plan is dictated by nurse practitioner Mrs. Janay Wise.
[2017-05-30] MEDS ORDERED: IBUPROFEN 400 MG TAB PO PRN (21:29)
[2017-05-31] MEDS: VANCOMYCIN 2,000 MG in SODIUM CHLORIDE 0.9% 500 ML IVPB SCH ×3 (03:42→22:08)
[2017-05-31] MEDS: SODIUM CHLORIDE 0.9% 1,000 ML IV SCH ×3 (03:50→22:08)
[2017-05-31 07:26] VITALS: RESP 16
[2017-05-31 07:43] LABS: Basophils # (A) 0.1 k/uL (0-0.2); Basophils % (A) 0 %; CH 26.2; CHCM 33.2; Eosinophils % (A) 0 %; HCT 41.6 % (39.0-53.0); HDW 2.39; Luc # (Auto) 0.22; Luc % (Auto) 2; Lymphocytes # (A) 1.3 k/uL (1.0-4.8); Lymphocytes % (A) 9 %; MCH 26.8 pg (25.0-35.0); MCHC 33.8 g/dL (31.0-37.0); MCV 79.2 fL (80.0-100.0); Mean Platelet Volume 8.5; Monocytes # (A) 0.7 k/uL (0-1.0); Monocytes % (A) 5 %; Neutrophils # (A) 11.4 k/uL (1.3-7.7); Neutrophils % (A) 84 %; RBC 5.25 m/uL (4.30-5.90); RDW 14.4 % (11.5-15.5); WBC 13.7 k/uL (3.8-10.6); WBC (Perox) 13.51
[2017-05-31] MEDS: IPRATROPIUM-ALBUTEROL 3 ML NEB INHALATION SCH ×4 (07:47→20:42)
[2017-05-31] MEDS: BUDESONIDE 0.5 MG/2 ML NEBU INHALATION SCH ×2 (07:47→20:42)
[2017-05-31] MEDS: PIPERACILLIN-TAZOBACTAM 3.375 GM in DEXTROSE/WATER 1 50ML.BAG IVPB SCH ×2 (08:02→16:06)
[2017-05-31] MEDS: PANTOPRAZOLE 40 MG TABLET PO SCH (08:04)
[2017-05-31] MEDS: METOPROLOL TARTRATE 25 MG TAB PO SCH ×2 (08:04→20:39)
[2017-05-31] MEDS: LISINOPRIL 5 MG TAB PO SCH (08:04)
[2017-05-31] MEDS: ACETAMINOPHEN TAB 500 MG TAB PO PRN ×3 (08:05→20:25)
[2017-05-31 08:06] LABS: ALT 28 U/L (21-72); AST 27 U/L (17-59); Alkaline Phosphatase 51 U/L (38-126); Anion Gap 9 mmol/L; Blood Urea Nitrogen 11 mg/dL (9-20); Calcium 7.8 mg/dL (8.4-10.2); Carbon Dioxide 19 mmol/L (22-30); Chloride 110 mmol/L (98-107); Glucose 113 mg/dL (74-99); Non-African American GFR(MDRD) >60 (>60 ml/min/1.73 sqM); Potassium 3.8 mmol/L (3.5-5.1); Sodium 138 mmol/L (137-145); Total Bilirubin 1.1 mg/dL (0.2-1.3); Total Protein 5.5 g/dL (6.3-8.2)
[2017-05-31] MEDS ORDERED: LEVOFLOXACIN 750MG-D5W PMX 750 MG in DEXTROSE/WATER 1 150ML.BAG IVPB SCH (09:00)
[2017-05-31] MEDS: IOHEXOL 350 MG/ML 25 ML BOTTLE (ORAL USE) PO PRN ×2 (10:15→11:15)
--- NOTE | 2017-05-31 11:59 | P.PN ---
Subjective 61-year-old male one of Dr. Marshall patient with past medical history of CAD post MD angioplasty and stent placement last year history of chronic smoking history of hypertension hyperlipidemia who apparently did not feel good in the last 24 hours developed to have fever and chills on Tuesday symptoms become much worse patient is having significant shortness of breath with dyspnea ended up coming to demurs department at [facility] where was seen and evaluated his temperature continued be continue to be 102. With elevated d-dimer ended up going for CTA result came back negative for PE. Patient clinically has pneumonia cannot be find on chest x-ray or CAT scan his lactic acid slightly but elevated as well and looks septic. Blood culture was done patient will be started on gram-negative coverage with empiric antibiotics was start him on updraft treatment O2m be hospitalized consult infectious disease awaiting for the final blood culture. Urine came back negative and examining patient all over his body could not feel her find any spot of infection cellulitis abscess or lymph node enlargement. 05/30: Patient has been seen in consultation by Dr. Carlos with recommendations for vancomycin and Zosyn and CAT scan of the abdomen and pelvis with contrast which is scheduled for this afternoon. White count is improved to 13.7. Influenza testing type A and type B negative. The cultures status received, sputum culture status received and urine culture in progress. He has been afebrile since 1500 yesterday but states that he had significant sweats through the night. He is also complaining of loose stools for which probiotics and yogurt recommended. He states he feels a little bit better from yesterday but not much. Objective - Vital Signs Vital signs: Vital Signs Temp 98.6 F 05/31/17 07:00 Pulse 110 H 05/31/17 08:03 Resp 16 05/31/17 07:00 BP 109/68 05/31/17 07:00 Pulse Ox 95 05/31/17 07:50 Intake & Output 05/30/17 05/31/17 05/31/17 18:59 06:59 18:59 Intake Total 1000 1650 Balance 1000 1650 Weight 111.13 kg Intake: Amount of Fluid Infused ( 1000 ml) Intake, IV Titration 1050 Amount Piperacillin-Tazobactam 3 50 .375 gm In Dextrose/Water 1 50ml.bag @ 12.5 mls/hr IVPB Q8HR [facility] Rx#: [id number] Sodium Chloride 0.9% 1, 500 000 ml @ 100 mls/hr IV . Q10H [facility] Rx#:[id number] Vancomycin 2,000 mg In 500 Sodium Chloride 0.9% 500 ml @ 167 mls/hr IVPB Q12H [facility] Rx#:[id number] Oral 600 Other: # Voids 1 - Exam General appearance: no average body habitus, cooperative, no disheveled, no mild distress, no morbidly obese, no acute distress, no obese, no severe distress, no thin - EENT Eyes: no abnormal pupil, no anicteric sclerae, no disc margins sharp, no edentulous, no EOMI, no PERRLA, no fundus normal, no photophobia, no dentition normal, no poor dentition, no ptosis, no scleral icterus, normal appearance ENT: no hard of hearing, no hearing grossly normal, no NA/AT, normal oropharynx , no other, no pharyngeal erythema, no thrush, no tonsillar exudates, no tonsillar swelling Ears: bilateral: normal, bulging - Neck Neck: no lymphadenopathy, normal ROM, no other, no rigidity, no stridor, no thyromegaly Carotids: bilateral: upstroke normal Thyroid: bilateral: normal size - Respiratory Respiratory: bilateral: diminished, dullness, rales, rhonchi, wheezing - Cardiovascular Rhythm: regular Heart sounds: normal: S1, S2 Abnormal Heart Sounds: systolic murmur - Gastrointestinal General gastrointestinal: no absent bowel sounds, decreased bowel sounds, distended, no hepatomegaly, no hyperactive bowel sounds, no normal bowel sounds , no organomegaly, no rigid, no scaphoid, no soft, no splenomegaly, no tenderness, no umbilical hernia, no ventral hernia - Integumentary Integumentary: no calor, no cellulitis, no cyanotic, no decreased turgor, no flushed, no jaundiced, normal, no normal turgor, pale, rash, no ulcer - Neurologic Neurologic: CNII-XII intact - Musculoskeletal Musculoskeletal: gait normal, generalized weakness, strength equal bilaterally, no right sided weakness, no left sided weakness - Psychiatric Psychiatric: A&O x's 3, appropriate affect, no intact judgment & insight - Labs CBC & Chem 7: 05/31/17 07:16 05/31/17 07:16 Labs: Abnormal Lab Results - Last 24 Hours (Table) 05/30/17 05/30/17 05/31/17 Range/Units 09:06 09:33 07:16 WBC 13.7 H (3.8-10.6) k/uL MCV 79.2 L (80.0-100.0) fL Neutrophils # 11.4 H (1.3-7.7) k/uL D-Dimer 0.85 H (<0.60) mg/L FEU Chloride (98-107) mmol/L Carbon Dioxide (22-30) mmol/L Glucose (74-99) mg/dL Calcium (8.4-10.2) mg/dL Total Protein (6.3-8.2) g/dL Albumin (3.5-5.0) g/dL Urine Blood Small H (Negative) Urine RBC 8 H (0-5) /hpf Urine Mucus Rare H (None) /hpf 05/31/17 Range/Units 07:16 WBC (3.8-10.6) k/uL MCV (80.0-100.0) fL Neutrophils # (1.3-7.7) k/uL D-Dimer (<0.60) mg/L FEU Chloride 110 H (98-107) mmol/L Carbon Dioxide 19 L (22-30) mmol/L Glucose 113 H (74-99) mg/dL Calcium 7.8 L (8.4-10.2) mg/dL Total Protein 5.5 L (6.3-8.2) g/dL Albumin 2.8 L (3.5-5.0) g/dL Urine Blood (Negative) Urine RBC (0-5) /hpf Urine Mucus (None) /hpf Microbiology - Last 24 Hours (Table) 05/30/17 09:33 Urine Culture - Preliminary Urine,Clean Catch Assessment and Plan Plan: 1 sepsis with SIRS: FUO, continue Zosyn and vancomycin and Levaquin discontinued. CAT scan of the abdomen and pelvis to be done today. Consult with Dr. Carlos appreciated. 2 clinical pneumonitis not entirely ruled out: Finding on a clinical basis mostly in the bases both side especially in the right side patient be in gram if coverage continue updrafts and O2. 3 COPD with mild exacerbation: With patient's current condition patient will be on smaller dose of Solu-Medrol at 40 mg every 8 along with Pulmicort and DuoNeb continue O2 as well my consult pulmonary. 4 CAD post MD post angioplasty and stent placement patient is seen cardiology regular basis continue secondary prevention with metoprolol lisinopril Plavix and Lipitor. 5 hypertension: Remain well controlled on Prinivil 5 mg a day and metoprolol 25 g twice a day. 6 hyperlipidemia: Continue Lipitor at 40 mg daily. 7 GI prophylaxis/severe GERD patient remain on Prilosec 40 mg a day. 8 hyperglycemia: Continue patient on Accu-Chek with sliding scales coverage. 9 hematuria: Not a clear etiology again will do urine culture and the order abdominal ultrasound for any finding of abscess infection or stone. 10 GI prophylaxis: On Prilosec. 11 DVT prophylaxis: Patient will be on Lovenox 40 mg subcutaneous daily. 12. Diarrhea. Continue to monitor. Probiotics ordered and recommended yogurt with meals. CODE STATUS: Full code. Discharge plan: Return home Impression and plan of care have been directed as dictated by the signing physician. Janay Wise nurse practitioner acting as scribe for signing physician.
[2017-05-31] MEDS ORDERED: LOPERAMIDE 2 MG CAP PO STA (12:03)
--- NOTE | 2017-05-31 12:46 | XR ---
EXAMINATION TYPE: XR chest 2V DATE OF EXAM: 05/31/2017 COMPARISON: Chest x-ray and CTA chest from yesterday HISTORY: Pneumonia per order. TECHNIQUE: Frontal and lateral views of the chest are obtained. FINDINGS: Mild underlying emphysematous change is seen best on recent CT. There is some new patchy b ibasilar atelectasis confirmed on recent CT abdomen study. There is no suspicious new focal air space opacity, pleural effusion, or pneumothorax seen. The cardiac silhouette size is upper limits of nor mal. The osseous structures are intact. IMPRESSION: New patchy bibasilar atelectasis.
--- NOTE | 2017-05-31 13:06 | CT ---
EXAMINATION TYPE: CT abdomen pelvis w con DATE OF EXAM: 05/31/2017 COMPARISON: Correlation CT chest 05/30/2017 HISTORY: 61-year-old male fever of unknown origin TECHNIQUE: Contiguous axial scanning of the abdomen and pelvis following administration of 100 ml Omn ipaque 300 IV contrast. Delayed images through the kidneys and coronal/sagittal reconstructions perf ormed. CT DLP: 1941 mGycm Automated exposure control for dose reduction was used. FINDINGS: Heart is normal size without pericardial effusion. Strandy atelectasis/scarring at the lung bases. Tiny hiatal hernia. The liver is enlarged at 19.0 cm craniocaudal. There may be a component of fatty infiltration. No nancy iary ductal dilatation. Portal venous system is patent. Some layering gallstones are present. The gallbladder is mildly hydropic measuring 4.6 cm wide. No thomason rrounding inflammatory change. Adrenal glands, spleen, and pancreas show no gross abnormal body. Dominant 2.8 cm cyst within the left kidney. Additional smaller hypodensities many of which are too s mall for accurate CT characterization on both sides likely represent additional cysts. No dilated small bowel, free fluid, or free air. Couple borderline-enlarged retroperitoneal lymph nod es measure up to 6 mm. Additional numerous right lower quadrant mesenteric lymph nodes are enlarged m easuring up to 1.1 cm. There is thickening at the terminal ileum, ileocecal region, and moderate tianna atous wall thickening extending to the level of the distal third transverse colon with mild circumfer ential wall thickening extending to the upper descending colon. Along the right in the colon, there i s pericolonic inflammatory fat stranding. Mild symmetric bladder wall thickening. Prostate gland mildly enlarged measuring 4.0 cm wide. Some sm all amount of tracking fluid within the right hemipelvis. No pelvic lymphadenopathy. Bones: Degenerative disc disease at L5-S1. No osseous destructive process. IMPRESSION: 1. Infectious or inflammatory colitis markedly affecting the right hemicolon. There is surrounding in flammatory fat stranding, wall edema, and trace fluid tracking into the pelvis. No abscess or free ai r. 2. Mesenteric lymphadenopathy most numerous in the right lower quadrant measures up to 1.1 cm and is likely reactive. 3 month follow-up to ensure resolution. 3. Cholelithiasis. Mildly hydropic gallbladder probably relates to fasting state. If concern for rajesh y acute cholecystitis, follow-up ultrasound or HIDA scan. 4. Hepatomegaly. There may be a component of fatty infiltration.
[2017-05-31] MEDS: LACTOBACILLUS ACIDOPH & BULGAR 1 EACH PACKET PO SCH ×2 (16:52→22:04)
[2017-05-31 20:23] LABS: Glucose,Whole Blood 110 mg/dL (75-99)
--- NOTE | 2017-05-31 20:25 | P.PN ---
Subjective Principal diagnosis: FUO This is a 61-year-old male patient that gives history that he has not been feeling well for the past 24 hours with fever and chill this started on Tuesday and continued to worsen with some shortness of breath. He also had an episode prior to this a few days ago and also had a fever at that time. Patient came into [facility] and was found to have a temperature of 102.2 and leukocytosis of 19.6. He underwent a chest x-ray and CTA of the chest that was nondiagnostic for pulmonary embolism. Mild underlying emphysematous change without suspicious acute pulmonary process. His urinalysis was positive for small amount of blood with RBCs of 8. Initial lactic acid was 2.3 and repeat 1.6. Patient was started on Levaquin and [facility] floor. Blood culture has been status received. Urine culture negative so far. Because the patient was having some gastrointestinal symptoms before admission computed tomography scan of the abdomen and pelvis has been requested. Patient has noticed an increase amount of his loose stool the day today. Objective - Vital Signs Vital signs: Vital Signs Temp 98.9 F 05/31/17 15:00 Pulse 105 H 05/31/17 15:29 Resp 16 05/31/17 15:00 BP 127/93 05/31/17 15:00 Pulse Ox 95 05/31/17 15:00 Intake & Output 05/31/17 05/31/17 06/01/17 06:59 18:59 06:59 Intake Total 1650 Output Total 4 Balance 1650 -4 Intake: Intake, IV Titration 1050 Amount Piperacillin-Tazobactam 3 50 .375 gm In Dextrose/Water 1 50ml.bag @ 12.5 mls/hr IVPB Q8HR [facility] Rx#: [id number] Sodium Chloride 0.9% 1, 500 000 ml @ 100 mls/hr IV . Q10H [facility] Rx#:[id number] Vancomycin 2,000 mg In 500 Sodium Chloride 0.9% 500 ml @ 167 mls/hr IVPB Q12H [facility] Rx#:[id number] Oral 600 Output: Urine 2 Stool 2 Other: # Voids 1 - Exam Gen: This is a 61-year-old male. He is on this stretcher in ER and appears to be comfortable and in no acute distress. HEENT: Head is atraumatic, normocephalic. Pupils equal, round. Sclerae is anicteric. Conjunctiva pink. Mucous members of the mouth are moist. No oropharyngeal inflammation. NECK: Supple. No JVD. No lymphadenopathy. No thyromegaly. LUNGS: Clear to auscultation. No wheezes or rhonchi. No intercostal retractions. HEART: Regular rate and rhythm. No murmur. ABDOMEN: Soft. Bowel sounds are present. No masses. There is only minimal epigastric tenderness on deep palpation. No CVA tenderness, there is no guarding or rebound. No tenderness in the right lower quadrant left lower quadrant or suprapubic area. EXTREMITIES: No pedal edema. No calf tenderness. No calf tenderness. NEUROLOGICAL: Patient is awake, alert and oriented x3. - Labs CBC & Chem 7: 05/31/17 07:16 05/31/17 07:16 Labs: Abnormal Lab Results - Last 24 Hours (Table) 05/31/17 05/31/17 Range/Units 07:16 07:16 WBC 13.7 H (3.8-10.6) k/uL MCV 79.2 L (80.0-100.0) fL Neutrophils # 11.4 H (1.3-7.7) k/uL Chloride 110 H (98-107) mmol/L Carbon Dioxide 19 L (22-30) mmol/L Glucose 113 H (74-99) mg/dL Calcium 7.8 L (8.4-10.2) mg/dL Total Protein 5.5 L (6.3-8.2) g/dL Albumin 2.8 L (3.5-5.0) g/dL Microbiology - Last 24 Hours (Table) 05/30/17 09:33 Urine Culture - Final Urine,Clean Catch 05/31/17 15:19 Gram Stain - Final Sputum Sputum Culture - Final Not Reportable 05/30/17 12:16 Blood Culture - Preliminary Blood No Growth after 24 hours 05/30/17 09:06 Blood Culture - Preliminary Blood No Growth after 24 hours Laboratory Results WBC 13.7 k/uL (3.8-10.6) H 05/31/17 07:16 RBC 5.25 m/uL (4.30-5.90) 05/31/17 07:16 Hgb 14.0 gm/dL (13.0-17.5) 05/31/17 07:16 Hct 41.6 % (39.0-53.0) 05/31/17 07:16 MCV 79.2 fL (80.0-100.0) L 05/31/17 07:16 MCH 26.8 pg (25.0-35.0) 05/31/17 07:16 MCHC 33.8 g/dL (31.0-37.0) 05/31/17 07:16 RDW 14.4 % (11.5-15.5) 05/31/17 07:16 Plt Count 198 k/uL (150-450) 05/31/17 07:16 Neutrophils % 84 % 05/31/17 07:16 Lymphocytes % 9 % 05/31/17 07:16 Monocytes % 5 % 05/31/17 07:16 Eosinophils % 0 % 05/31/17 07:16 Basophils % 0 % 05/31/17 07:16 Neutrophils # 11.4 k/uL (1.3-7.7) H 05/31/17 07:16 Lymphocytes # 1.3 k/uL (1.0-4.8) 05/31/17 07:16 Monocytes # 0.7 k/uL (0-1.0) 05/31/17 07:16 Eosinophils # 0.0 k/uL (0-0.7) 05/31/17 07:16 Basophils # 0.1 k/uL (0-0.2) 05/31/17 07:16 PT 12.1 sec (9.0-12.0) H 05/30/17 09:06 INR 1.2 (<1.1) 05/30/17 09:06 APTT 26.2 sec (22.0-30.0) 05/30/17 09:06 D-Dimer 0.85 mg/L FEU (<0.60) H 05/30/17 09:06 Sodium 138 mmol/L (137-145) 05/31/17 07:16 Potassium 3.8 mmol/L (3.5-5.1) 05/31/17 07:16 Chloride 110 mmol/L (98-107) H 05/31/17 07:16 Carbon Dioxide 19 mmol/L (22-30) L 05/31/17 07:16 Anion Gap 9 mmol/L 05/31/17 07:16 BUN 11 mg/dL (9-20) 05/31/17 07:16 Creatinine 0.98 mg/dL (0.66-1.25) 05/31/17 07:16 Est GFR (MDRD) Af Amer >60 (>60 ml/min/1.73 sqM) 05/31/17 07:16 Est GFR (MDRD) Non-Af >60 (>60 ml/min/1.73 sqM) 05/31/17 07:16 Glucose 113 mg/dL (74-99) H 05/31/17 07:16 Plasma Lactic Acid Lee 1.6 mmol/L (0.7-2.0) 05/30/17 12:20 Calcium 7.8 mg/dL (8.4-10.2) L 05/31/17 07:16 Total Bilirubin 1.1 mg/dL (0.2-1.3) 05/31/17 07:16 AST 27 U/L (17-59) 05/31/17 07:16 ALT 28 U/L (21-72) 05/31/17 07:16 Alkaline Phosphatase 51 U/L (38-126) 05/31/17 07:16 Total Creatine Kinase 152 U/L (55-170) 05/30/17 09:06 CK-MB (CK-2) 0.6 ng/mL (0.0-2.4) 05/30/17 09:06 CK-MB (CK-2) Rel Index 0.4 05/30/17 09:06 Troponin I <0.012 ng/mL (0.000-0.034) 05/30/17 09:06 Total Protein 5.5 g/dL (6.3-8.2) L 05/31/17 07:16 Albumin 2.8 g/dL (3.5-5.0) L 05/31/17 07:16 Urine Color Yellow 05/30/17 09:33 Urine Appearance Clear (Clear) 05/30/17 09:33 Urine pH 5.5 (5.0-8.0) 05/30/17 09:33 Ur Specific [place] 1.018 (1.001-1.035) 05/30/17 09:33 Urine Protein Negative (Negative) 05/30/17 09:33 Urine Glucose (UA) Negative (Negative) 05/30/17 09:33 Urine Ketones Negative (Negative) 05/30/17 09:33 Urine Blood Small (Negative) H 05/30/17 09:33 Urine Nitrite Negative (Negative) 05/30/17 09:33 Urine Bilirubin Negative (Negative) 05/30/17 09:33 Urine Urobilinogen <2.0 mg/dL (<2.0) 05/30/17 09:33 Ur Leukocyte Esterase Negative (Negative) 05/30/17 09:33 Urine RBC 8 /hpf (0-5) H 05/30/17 09:33 Urine WBC 1 /hpf (0-5) 05/30/17 09:33 Urine Mucus Rare /hpf (None) H 05/30/17 09:33 Influenza Type A RNA Not Detected (Not Detectd) 05/30/17 15:00 Influenza Type B (PCR) Not Detected (Not Detectd) 05/30/17 15:00 Microbiology 05/30/17 09:33 Urine,Clean Catch Urine Culture - Final 05/31/17 15:19 Sputum Gram Stain - Final 05/31/17 15:19 Sputum Sputum Culture - Final Not Reportable 05/30/17 12:16 Blood Blood Culture - Preliminary No Growth after 24 hours 05/30/17 09:06 Blood Blood Culture - Preliminary No Growth after 24 hours Assessment and Plan (1) Fever Narrative/Plan: Pleasant 61-year-old male presents to Hospital with significant fever. He was quite symptomatic and his significant other directed him to hospital. At admission he 102 fever. And significant leukocytosis. He also met sirs criteria and was admitted. With hydration and antibiotic therapy he is now showing improvement. Has had a change that at home he was having much more constipation than requiring mag citrate and Dulcolax. Now is having frequent loose stools that are nonbloody. Computed tomography scan of the abdomen and pelvis was requested. Showing evidence of significant colitis from the cecum to the transverse colon. And potentially also cholelithiasis and possibly cholecystitis. Stool analysis will be sent although it is not likely he has C. diff since he does not have antecedent antibiotic therapy. The stool cultures will also be obtained. Case is discussed with the attending and surgical consult will be requested given the abnormality seen on the computed tomography scan and potential need for follow-up. Fever is now better controlled Leukocytosis is improving Other than the diarrhea the patient is feeling somewhat better today. Status: Acute (2) Leucocytosis Status: Acute (3) Diarrhea Status: Acute
[2017-05-31] MEDS: ASPIRIN 81 MG CHEW PO SCH (20:39)
[2017-05-31] MEDS: CLOPIDOGREL 75 MG TAB PO SCH (20:39)
[2017-05-31] MEDS: ATORVASTATIN 40 MG TAB PO SCH (20:40)
[2017-06-01] MEDS: PIPERACILLIN-TAZOBACTAM 3.375 GM in DEXTROSE/WATER 1 50ML.BAG IVPB SCH ×4 (00:56→23:19)
[2017-06-01 07:13] LABS: Glucose,Whole Blood 118 mg/dL (75-99)
[2017-06-01] MEDS: IPRATROPIUM-ALBUTEROL 3 ML NEB INHALATION SCH ×4 (07:23→18:57)
[2017-06-01] MEDS: BUDESONIDE 0.5 MG/2 ML NEBU INHALATION SCH ×2 (07:24→18:57)
[2017-06-01] MEDS: SODIUM CHLORIDE 0.9% 1,000 ML IV SCH ×2 (07:34→14:24)
[2017-06-01] MEDS: ACETAMINOPHEN TAB 500 MG TAB PO PRN ×2 (07:35→16:32)
[2017-06-01] MEDS: LACTOBACILLUS ACIDOPH & BULGAR 1 EACH PACKET PO SCH ×3 (07:36→22:03)
[2017-06-01] MEDS: METOPROLOL TARTRATE 25 MG TAB PO SCH ×2 (07:37→22:03)
[2017-06-01] MEDS: PANTOPRAZOLE 40 MG TABLET PO SCH (07:37)
[2017-06-01] MEDS: LISINOPRIL 5 MG TAB PO SCH (07:37)
[2017-06-01 07:48] LABS: CHCM 33.2; HCT 36.9 % (39.0-53.0); HDW 2.53; HGB 12.4 gm/dL (13.0-17.5); MCH 26.5 pg (25.0-35.0); MCHC 33.7 g/dL (31.0-37.0); MCV 78.7 fL (80.0-100.0); Mean Platelet Volume 8.2; RBC 4.69 m/uL (4.30-5.90); RDW 14.4 % (11.5-15.5)
[2017-06-01 07:55] LABS: Anion Gap 8 mmol/L; Blood Urea Nitrogen 6 mg/dL (9-20); Carbon Dioxide 22 mmol/L (22-30); Chloride 111 mmol/L (98-107); Glucose 122 mg/dL (74-99); Non-African American GFR(MDRD) >60 (>60 ml/min/1.73 sqM); Potassium 3.5 mmol/L (3.5-5.1); Sodium 141 mmol/L (137-145)
--- NOTE | 2017-06-01 11:18 | P.GSCN ---
History of Present Illness Consult date: 06/01/17 Reason for Consult: Colitis History of present illness: Patient came in with complaints of fevers and malaise and some vague right- sided pain. The patient was actually somewhat constipated at home but during the hospitalization started to have some loose stools. CAT scan was performed which showed right sided colitis extending from the terminal ileum to the midtransverse colon. No sick contacts. No recent travel. Cultures are so far negative. Never had any rectal bleeding. As much better at this time. Was having fevers as high as 102. Leukocytosis as high as 19. he he is now afebrile with a normal white blood cell count. No abdominal pain presently. He is tolerating regular food. Last colonoscopy was normal and that was 3 years ago. Past Medical History Past Medical History: Coronary Artery Disease (CAD), Myocardial Infarction (CA) , Pneumonia Additional Past Medical History / Comment(s): Pneumonia twice as a child. Last Myocardial Infarction Date:: 2015 History of Any Multi-Drug Resistant Organisms: None Reported Past Surgical History: Back Surgery, Heart Catheterization With Stent Additional Past Surgical History / Comment(s): PCI with stent in 2016 at [facility], colonoscopy. Past Anesthesia/Blood Transfusion Reactions: No Reported Reaction, Motion Sickness Date of Last Stent Placement:: 2015 Past Psychological History: No Psychological Hx Reported Smoking Status: Current every day smoker Past Alcohol Use History: None Reported Past Drug Use History: None Reported - Past Family History Father Family Medical History: Myocardial Infarction (CA), Pneumonia Additional Family Medical History / Comment(s): Father at the age of 52 yrs from a CA/pneumonia. Mother Family Medical History: Myocardial Infarction (CA) Additional Family Medical History / Comment(s): Mother at the age of 67yrs from a CA. Medications and Allergies Home Medications Medication Instructions Recorded Confirmed Type Aspirin [Adult Low Dose Aspirin EC] 81 mg PO HS 05/30/17 05/30/17 History Atorvastatin [Lipitor] 40 mg PO HS 05/30/17 05/30/17 History Clopidogrel [Plavix] 75 mg PO HS 05/30/17 05/30/17 History Lisinopril [Prinivil] 5 mg PO DAILY 05/30/17 05/30/17 History Metoprolol Tartrate 25 mg PO BID 05/30/17 05/30/17 History [place]-3/Dha/Epa/Fish Oil [Fish Oil 1 cap PO HS 05/30/17 05/30/17 History 500 mg Softgel] Omeprazole [PriLOSEC] 40 mg PO DAILY 05/30/17 05/30/17 History Vitamin E 100 unit PO HS 05/30/17 05/30/17 History Allergies Allergy/AdvReac Type Severity Reaction Status Date / Time No Known Allergies Allergy Verified 05/30/17 08:45 Surgical - Exam Vital Signs Temp Pulse Resp BP Pulse Ox 102.2 F H 125 H 24 116/67 96 05/30/17 08:29 05/30/17 08:29 05/30/17 08:29 05/30/17 08:29 05/30/17 08:29 Physical exam: General: Well-developed, well-nourished HEENT: Normocephalic, sclerae nonicteric Abdomen: Nontender, nondistended Extremities: No edema Neuro: Alert and oriented Results - Labs 06/01/17 07:21 06/01/17 07:21 Abnormal Lab Results - Last 24 Hours (Table) 05/31/17 06/01/17 06/01/17 Range/Units 20:21 07:12 07:21 Hgb (13.0-17.5) gm/dL Hct (39.0-53.0) % MCV (80.0-100.0) fL Chloride 111 H (98-107) mmol/L BUN 6 L (9-20) mg/dL Glucose 122 H (74-99) mg/dL POC Glucose (mg/dL) 110 H 118 H (75-99) mg/dL Calcium 8.0 L (8.4-10.2) mg/dL 06/01/17 Range/Units 07:21 Hgb 12.4 L (13.0-17.5) gm/dL Hct 36.9 L (39.0-53.0) % MCV 78.7 L (80.0-100.0) fL Chloride (98-107) mmol/L BUN (9-20) mg/dL Glucose (74-99) mg/dL POC Glucose (mg/dL) (75-99) mg/dL Calcium (8.4-10.2) mg/dL Microbiology - Last 24 Hours (Table) 05/31/17 20:25 Stool for WBCs - Final Stool 05/31/17 20:25 Stool Culture - Preliminary Stool 05/30/17 09:33 Urine Culture - Final Urine,Clean Catch 05/31/17 15:19 Gram Stain - Final Sputum Sputum Culture - Final Not Reportable 05/30/17 12:16 Blood Culture - Preliminary Blood No Growth after 24 hours 05/30/17 09:06 Blood Culture - Preliminary Blood No Growth after 24 hours Diabetes panel 06/01/17 Range/Units 07:21 Sodium 141 (137-145) mmol/L Potassium 3.5 (3.5-5.1) mmol/L Chloride 111 H (98-107) mmol/L Carbon Dioxide 22 (22-30) mmol/L BUN 6 L (9-20) mg/dL Creatinine 0.85 (0.66-1.25) mg/dL Glucose 122 H (74-99) mg/dL Calcium 8.0 L (8.4-10.2) mg/dL Calcium panel 06/01/17 Range/Units 07:21 Calcium 8.0 L (8.4-10.2) mg/dL Pituitary panel 06/01/17 Range/Units 07:21 Sodium 141 (137-145) mmol/L Potassium 3.5 (3.5-5.1) mmol/L Chloride 111 H (98-107) mmol/L Carbon Dioxide 22 (22-30) mmol/L BUN 6 L (9-20) mg/dL Creatinine 0.85 (0.66-1.25) mg/dL Glucose 122 H (74-99) mg/dL Calcium 8.0 L (8.4-10.2) mg/dL Adrenal panel 06/01/17 Range/Units 07:21 Sodium 141 (137-145) mmol/L Potassium 3.5 (3.5-5.1) mmol/L Chloride 111 H (98-107) mmol/L Carbon Dioxide 22 (22-30) mmol/L BUN 6 L (9-20) mg/dL Creatinine 0.85 (0.66-1.25) mg/dL Glucose 122 H (74-99) mg/dL Calcium 8.0 L (8.4-10.2) mg/dL Assessment and Plan (1) Colitis Narrative/Plan: CAT scan was reviewed and does reveal inflammatory changes involving the right side of the colon. Etiology at this point remains unclear but may represent infectious colitis. Await stool cultures. Continue antibiotics per infectious disease. Follow closely with you. No need at this time for colonoscopy as the patient's symptoms recur or increase. We'll follow with you. Status: Acute
[2017-06-01] MEDS: VANCOMYCIN 2,000 MG in SODIUM CHLORIDE 0.9% 500 ML IVPB SCH (14:23)
--- NOTE | 2017-06-01 15:02 | P.PN ---
Subjective Principal diagnosis: Sepsis, clinical pneumonitis, colitis, COPD, CAD, hypertension, hyperlipidemia 61-year-old male one of Dr. Marshall patient with past medical history of CAD post CT angioplasty and stent placement last year history of chronic smoking history of hypertension hyperlipidemia who apparently did not feel good in the last 24 hours developed to have fever and chills on Tuesday symptoms become much worse patient is having significant shortness of breath with dyspnea ended up coming to demurs department at [facility] where was seen and evaluated his temperature continued be continue to be 102. With elevated d-dimer ended up going for CTA result came back negative for PE. Patient clinically has pneumonia cannot be find on chest x-ray or CAT scan his lactic acid slightly but elevated as well and looks septic. Blood culture was done patient will be started on gram-negative coverage with empiric antibiotics was start him on updraft treatment O2m be hospitalized consult infectious disease awaiting for the final blood culture. Urine came back negative and examining patient all over his body could not feel her find any spot of infection cellulitis abscess or lymph node enlargement. 05/30: Patient has been seen in consultation by Dr. Carlos with recommendations for vancomycin and Zosyn and CAT scan of the abdomen and pelvis with contrast which is scheduled for this afternoon. White count is improved to 13.7. Influenza testing type A and type B negative. The cultures status received, sputum culture status received and urine culture in progress. He has been afebrile since 1500 yesterday but states that he had significant sweats through the night. He is also complaining of loose stools for which probiotics and yogurt recommended. He states he feels a little bit better from yesterday but not much. 06/01/2017: CT of the abdomen showed right-sided colitis, patient was seen Dr. norwood who agreed to treat this as an infectious colitis for now patient will require colonoscopy at some point in the next few weeks. Clinically is much better not running any fever and chills will continue IV antibiotics at least till tomorrow patient will require to be on oral antibiotic including Flagyl and Levaquin for 7-10 days after his discharge. Objective - Vital Signs Vital signs: Vital Signs Temp 98.3 F 06/01/17 07:00 Pulse 100 06/01/17 11:12 Resp 16 06/01/17 08:00 BP 109/71 06/01/17 07:00 Pulse Ox 97 06/01/17 07:00 Intake & Output 05/31/17 06/01/17 06/01/17 18:59 06:59 18:59 Intake Total 590 Output Total 4 Balance -4 590 Weight 111.13 kg Intake: Oral 590 Output: Urine 2 Stool 2 Other: Voiding Method Toilet # Voids 2 2 - Constitutional General appearance: Present: cooperative, no acute distress. Absent: average body habitus, disheveled, mild distress, morbidly obese, obese, severe distress , thin - EENT Eyes: Present: normal appearance. Absent: abnormal pupil, anicteric sclerae, disc margins sharp, edentulous, EOMI, PERRLA, fundus normal, photophobia, dentition normal, poor dentition, ptosis, scleral icterus ENT: Present: normal oropharynx. Absent: hard of hearing, hearing grossly normal, NA/AT, other, pharyngeal erythema, thrush, tonsillar exudates, tonsillar swelling Ears: bilateral: normal - Neck Neck: Present: normal ROM. Absent: lymphadenopathy, other, rigidity, stridor, thyromegaly Carotids: bilateral: upstroke normal Thyroid: bilateral: normal size - Respiratory Respiratory: bilateral: CTA - Cardiovascular Rhythm: regular Heart sounds: normal: S1, S2 Abnormal Heart Sounds: Present: systolic murmur - Gastrointestinal General gastrointestinal: Present: distended, normal bowel sounds, tenderness. Absent: absent bowel sounds, decreased bowel sounds, hepatomegaly, hyperactive bowel sounds, organomegaly, rigid, scaphoid, soft, splenomegaly, umbilical hernia, ventral hernia - Integumentary Integumentary: Present: normal, pale, rash. Absent: calor, cellulitis, cyanotic , decreased turgor, flushed, jaundiced, normal turgor, ulcer - Neurologic Neurologic: Present: CNII-XII intact - Musculoskeletal Musculoskeletal: Present: gait normal, generalized weakness, strength equal bilaterally - Psychiatric Psychiatric: Present: A&O x's 3, appropriate affect - Labs CBC & Chem 7: 06/01/17 07:21 06/01/17 07:21 Labs: Abnormal Lab Results - Last 24 Hours (Table) 05/31/17 06/01/17 06/01/17 Range/Units 20:21 07:12 07:21 Hgb (13.0-17.5) gm/dL Hct (39.0-53.0) % MCV (80.0-100.0) fL Chloride 111 H (98-107) mmol/L BUN 6 L (9-20) mg/dL Glucose 122 H (74-99) mg/dL POC Glucose (mg/dL) 110 H 118 H (75-99) mg/dL Calcium 8.0 L (8.4-10.2) mg/dL 06/01/17 Range/Units 07:21 Hgb 12.4 L (13.0-17.5) gm/dL Hct 36.9 L (39.0-53.0) % MCV 78.7 L (80.0-100.0) fL Chloride (98-107) mmol/L BUN (9-20) mg/dL Glucose (74-99) mg/dL POC Glucose (mg/dL) (75-99) mg/dL Calcium (8.4-10.2) mg/dL Microbiology - Last 24 Hours (Table) 05/30/17 12:16 Blood Culture - Preliminary Blood No Growth after 48 hours 05/30/17 09:06 Blood Culture - Preliminary Blood No Growth after 48 hours 05/31/17 20:25 Stool for WBCs - Final Stool 05/31/17 20:25 Stool Culture - Preliminary Stool 05/30/17 09:33 Urine Culture - Final Urine,Clean Catch 05/31/17 15:19 Gram Stain - Final Sputum Sputum Culture - Final Not Reportable Assessment and Plan Plan: 1 sepsis with SIRS: Not a clear etiology so far but most likely pneumonia in origin awaiting for the final blood culture patient will be on Zosyn and Levaquin we'll consult infectious disease continue to watch his culture sputum and urine culture be done as well. Surprisingly finding still consistent with the infectious colitis, patient remain on current IV antibiotic will switch him to oral by tomorrow. 2 clinical pneumonitis: Finding on a clinical basis mostly in the bases both side especially in the right side patient be in gram if coverage continue updrafts and O2. Still doing better clinically on oral antibiotics. 3 infectious colitis: His stools sample still negative currently continue patient on IV antibiotic with switch him to oral Flagyl and Levaquin. [address] post angioplasty and stent placement patient is seen cardiology regular basis continue secondary prevention with metoprolol lisinopril Plavix and Lipitor. 5 hypertension: Remain well controlled on Prinivil 5 mg a day and metoprolol 25 g twice a day. 6 hyperlipidemia: Continue Lipitor at 40 mg daily. 7 GI prophylaxis/severe GERD patient remain on Prilosec 40 mg a day. 8 hyperglycemia: Continue patient on Accu-Chek with sliding scales coverage. 9 hematuria: Not a clear etiology again will do urine culture and the order abdominal ultrasound for any finding of abscess infection or stone. 10 COPD with mild exacerbation: With patient's current condition patient will be on smaller dose of Solu-Medrol at 40 mg every 8 along with Pulmicort and DuoNeb continue O2 as well my consult pulmonary.
--- NOTE | 2017-06-01 21:50 | P.PN ---
Subjective Principal diagnosis: FUO This is a 61-year-old male patient that gives history that he has not been feeling well for the past 24 hours with fever and chill this started on Tuesday and continued to worsen with some shortness of breath. He also had an episode prior to this a few days ago and also had a fever at that time. Patient came into [facility] and was found to have a temperature of 102.2 and leukocytosis of 19.6. He underwent a chest x-ray and CTA of the chest that was nondiagnostic for pulmonary embolism. Mild underlying emphysematous change without suspicious acute pulmonary process. His urinalysis was positive for small amount of blood with RBCs of 8. Initial lactic acid was 2.3 and repeat 1.6. Patient was started on Levaquin and admitted to the [facility] floor. Blood culture has been status received. Urine culture negative so far. Because the patient was having some gastrointestinal symptoms before admission computed tomography scan of the abdomen and pelvis has been requested. Patient has now improved. Antibiotic therapies without resolution of his fever. A dose of Imodium as helped his significant diarrhea 3 soft small stools only today. He is definitely feeling better. Has been seen by surgery. Objective - Vital Signs Vital signs: Vital Signs Temp 98.2 F 06/01/17 15:00 Pulse 60 06/01/17 19:03 Resp 16 06/01/17 16:00 BP 100/66 06/01/17 15:00 Pulse Ox 92 L 06/01/17 19:03 Intake & Output 06/01/17 06/01/17 06/02/17 06:59 18:59 06:59 Intake Total 590 Output Total 3 Balance 590 -3 Weight 111.13 kg Intake: Oral 590 Output: Stool 3 Other: Voiding Method Toilet # Voids 2 4 - Exam Gen: This is a 61-year-old male. He is on this stretcher in ER and appears to be comfortable and in no acute distress. HEENT: Head is atraumatic, normocephalic. Pupils equal, round. Sclerae is anicteric. Conjunctiva pink. Mucous members of the mouth are moist. No oropharyngeal inflammation. NECK: Supple. No JVD. No lymphadenopathy. No thyromegaly. LUNGS: Clear to auscultation. No wheezes or rhonchi. No intercostal retractions. HEART: Regular rate and rhythm. No murmur. ABDOMEN: Soft. Bowel sounds are present. No masses. There is only minimal epigastric tenderness on deep palpation. No CVA tenderness, there is no guarding or rebound. No tenderness in the right lower quadrant left lower quadrant or suprapubic area. EXTREMITIES: No pedal edema. No calf tenderness. No calf tenderness. NEUROLOGICAL: Patient is awake, alert and oriented x3. - Labs CBC & Chem 7: 06/01/17 07:21 06/01/17 07:21 Labs: Abnormal Lab Results - Last 24 Hours (Table) 06/01/17 06/01/17 06/01/17 Range/Units 07: 07:21 07:21 Hgb 12.4 L (13.0-17.5) gm/dL Hct 36.9 L (39.0-53.0) % MCV 78.7 L (80.0-100.0) fL Chloride 111 H (98-107) mmol/L BUN 6 L (9-20) mg/dL Glucose 122 H (74-99) mg/dL POC Glucose (mg/dL) 118 H (75-99) mg/dL Calcium 8.0 L (8.4-10.2) mg/dL Microbiology - Last 24 Hours (Table) 06/01/17 19:00 Sputum Culture - Preliminary Sputum 05/30/17 12:16 Blood Culture - Preliminary Blood No Growth after 48 hours 05/30/17 09:06 Blood Culture - Preliminary Blood No Growth after 48 hours 05/31/17 20:25 Stool for WBCs - Final Stool 05/31/17 20:25 Stool Culture - Preliminary Stool 05/30/17 09:33 Urine Culture - Final Urine,Clean Catch 05/31/17 15:19 Gram Stain - Final Sputum Sputum Culture - Final Not Reportable Laboratory Results WBC 10.0 k/uL (3.8-10.6) 06/01/17 07:21 RBC 4.69 m/uL (4.30-5.90) 06/01/17 07:21 Hgb 12.4 gm/dL (13.0-17.5) L 06/01/17 07:21 Hct 36.9 % (39.0-53.0) L 06/01/17 07:21 MCV 78.7 fL (80.0-100.0) L 06/01/17 07:21 MCH 26.5 pg (25.0-35.0) 06/01/17 07:21 MCHC 33.7 g/dL (31.0-37.0) 06/01/17 07:21 RDW 14.4 % (11.5-15.5) 06/01/17 07:21 Plt Count 195 k/uL (150-450) 06/01/17 07:21 Neutrophils % 84 % 05/31/17 07:16 Lymphocytes % 9 % 05/31/17 07:16 Monocytes % 5 % 05/31/17 07:16 Eosinophils % 0 % 05/31/17 07:16 Basophils % 0 % 05/31/17 07:16 Neutrophils # 11.4 k/uL (1.3-7.7) H 05/31/17 07:16 Lymphocytes # 1.3 k/uL (1.0-4.8) 05/31/17 07:16 Monocytes # 0.7 k/uL (0-1.0) 05/31/17 07:16 Eosinophils # 0.0 k/uL (0-0.7) 05/31/17 07:16 Basophils # 0.1 k/uL (0-0.2) 05/31/17 07:16 PT 12.1 sec (9.0-12.0) H 05/30/17 09:06 INR 1.2 (<1.1) 05/30/17 09:06 APTT 26.2 sec (22.0-30.0) 05/30/17 09:06 D-Dimer 0.85 mg/L FEU (<0.60) H 05/30/17 09:06 Sodium 141 mmol/L (137-145) 06/01/17 07:21 Potassium 3.5 mmol/L (3.5-5.1) 06/01/17 07:21 Chloride 111 mmol/L (98-107) H 06/01/17 07:21 Carbon Dioxide 22 mmol/L (22-30) 06/01/17 07:21 Anion Gap 8 mmol/L 06/01/17 07:21 BUN 6 mg/dL (9-20) L 06/01/17 07:21 Creatinine 0.85 mg/dL (0.66-1.25) 06/01/17 07:21 Est GFR (MDRD) Af Amer >60 (>60 ml/min/1.73 sqM) 06/01/17 07:21 Est GFR (MDRD) Non-Af >60 (>60 ml/min/1.73 sqM) 06/01/17 07:21 Glucose 122 mg/dL (74-99) H 06/01/17 07:21 POC Glucose (mg/dL) 118 mg/dL (75-99) H 06/01/17 07:12 POC Glu Calendering Machine Operator ID Elliott Valentina 06/01/17 07:12 Plasma Lactic Acid Lee 1.6 mmol/L (0.7-2.0) 05/30/17 12:20 Calcium 8.0 mg/dL (8.4-10.2) L 06/01/17 07:21 Total Bilirubin 1.1 mg/dL (0.2-1.3) 05/31/17 07:16 AST 27 U/L (17-59) 05/31/17 07:16 ALT 28 U/L (21-72) 05/31/17 07:16 Alkaline Phosphatase 51 U/L (38-126) 05/31/17 07:16 Total Creatine Kinase 152 U/L (55-170) 05/30/17 09:06 CK-MB (CK-2) 0.6 ng/mL (0.0-2.4) 05/30/17 09:06 CK-MB (CK-2) Rel Index 0.4 05/30/17 09:06 Troponin I <0.012 ng/mL (0.000-0.034) 05/30/17 09:06 Total Protein 5.5 g/dL (6.3-8.2) L 05/31/17 07:16 Albumin 2.8 g/dL (3.5-5.0) L 05/31/17 07:16 Urine Color Yellow 05/30/17 09:33 Urine Appearance Clear (Clear) 05/30/17 09:33 Urine pH 5.5 (5.0-8.0) 05/30/17 09:33 Ur Specific [place] 1.018 (1.001-1.035) 05/30/17 09:33 Urine Protein Negative (Negative) 05/30/17 09:33 Urine Glucose (UA) Negative (Negative) 05/30/17 09:33 Urine Ketones Negative (Negative) 05/30/17 09:33 Urine Blood Small (Negative) H 05/30/17 09:33 Urine Nitrite Negative (Negative) 05/30/17 09:33 Urine Bilirubin Negative (Negative) 05/30/17 09:33 Urine Urobilinogen <2.0 mg/dL (<2.0) 05/30/17 09:33 Ur Leukocyte Esterase Negative (Negative) 05/30/17 09:33 Urine RBC 8 /hpf (0-5) H 05/30/17 09:33 Urine WBC 1 /hpf (0-5) 05/30/17 09:33 Urine Mucus Rare /hpf (None) H 05/30/17 09:33 C. difficile (EIA) Intrp Negative (Negative) 05/31/17 20:25 Influenza Type A RNA Not Detected (Not Detectd) 05/30/17 15:00 Influenza Type B (PCR) Not Detected (Not Detectd) 05/30/17 15:00 Microbiology 06/01/17 19:00 Sputum Sputum Culture - Preliminary 05/30/17 12:16 Blood Blood Culture - Preliminary No Growth after 48 hours 05/30/17 09:06 Blood Blood Culture - Preliminary No Growth after 48 hours 05/31/17 20:25 Stool Stool for WBCs - Final 05/31/17 20:25 Stool Stool Culture - Preliminary 05/30/17 09:33 Urine,Clean Catch Urine Culture - Final 05/31/17 15:19 Sputum Gram Stain - Final 05/31/17 15:19 Sputum Sputum Culture - Final Not Reportable Assessment and Plan (1) Fever Narrative/Plan: Pleasant 61-year-old male presents to Hospital with significant fever. He was quite symptomatic and his significant other directed him to hospital. At admission he 102 fever. And significant leukocytosis. He also met sirs criteria and was admitted. With hydration and antibiotic therapy he is now showing improvement. Has had a change that at home he was having much more constipation than requiring mag citrate and Dulcolax. Now is having frequent loose stools that are nonbloody. Computed tomography scan of the abdomen and pelvis was requested. Showing evidence of significant colitis from the cecum to the transverse colon. And potentially also cholelithiasis and possibly cholecystitis. Stool studies evidence that. White blood cell counts are not seen in the stool. C. diff toxin is negative. Patient is been seen by general surgery. No need for intervention at this time. Outpatient colonoscopy approximate 4 weeks will be performed to further identify the etiology of his current illness. Case is discussed with the attending and surgical consult will be requested given the abnormality seen on the computed tomography scan and potential need for follow-up. Fever is now resolved Leukocytosis is resolved Diarrhea is improved Plan metronidazole to complete his course of antibiotic therapy at home for his fever from colitis Status: Acute (2) Leucocytosis Status: Acute (3) Diarrhea Status: Acute
[2017-06-01] MEDS: ASPIRIN 81 MG CHEW PO SCH (22:02)
[2017-06-01] MEDS: CLOPIDOGREL 75 MG TAB PO SCH ×2 (22:03→22:04)
[2017-06-01] MEDS: ATORVASTATIN 40 MG TAB PO SCH (22:04)
[2017-06-01] MEDS ORDERED: VANCOMYCIN TROUGH DUE 1 EACH MISC MISCELLANE ONE (23:00)
[2017-06-02] MEDS: VANCOMYCIN 2,000 MG in SODIUM CHLORIDE 0.9% 500 ML IVPB SCH (00:49)
[2017-06-02] MEDS: SODIUM CHLORIDE 0.9% 1,000 ML IV SCH ×2 (06:07→09:58)
[2017-06-02] MEDS: BUDESONIDE 0.5 MG/2 ML NEBU INHALATION SCH (07:06)
[2017-06-02] MEDS: IPRATROPIUM-ALBUTEROL 3 ML NEB INHALATION SCH ×2 (07:06→11:08)
[2017-06-02 07:57] VITALS: BP 107/68; TEMP 98.9
[2017-06-02] MEDS: METOPROLOL TARTRATE 25 MG TAB PO SCH (07:57)
[2017-06-02] MEDS: LISINOPRIL 5 MG TAB PO SCH (07:57)
[2017-06-02] MEDS: PIPERACILLIN-TAZOBACTAM 3.375 GM in DEXTROSE/WATER 1 50ML.BAG IVPB SCH (07:58)
[2017-06-02] MEDS: PANTOPRAZOLE 40 MG TABLET PO SCH (07:58)
[2017-06-02] MEDS: ACETAMINOPHEN TAB 500 MG TAB PO PRN (07:58)
[2017-06-02] MEDS: LACTOBACILLUS ACIDOPH & BULGAR 1 EACH PACKET PO SCH (07:58)
[2017-06-02 08:01] LABS: Basophils % (A) 0 %; CH 25.8; CHCM 32.7; Eosinophils # (A) 0.2 k/uL (0-0.7); Eosinophils % (A) 2 %; HCT 36.4 % (39.0-53.0); HDW 2.57; HGB 12.2 gm/dL (13.0-17.5); Luc # (Auto) 0.33; Luc % (Auto) 4; Lymphocytes # (A) 1.5 k/uL (1.0-4.8); Lymphocytes % (A) 16 %; MCH 26.6 pg (25.0-35.0); MCHC 33.5 g/dL (31.0-37.0); MCV 79.3 fL (80.0-100.0); Mean Platelet Volume 8.3; Monocytes # (A) 0.7 k/uL (0-1.0); Monocytes % (A) 8 %; Neutrophils # (A) 6.6 k/uL (1.3-7.7); Neutrophils % (A) 71 %; RDW 14.5 % (11.5-15.5); WBC 9.4 k/uL (3.8-10.6); WBC (Perox) 9.56
[2017-06-02 08:14] LABS: ALT 42 U/L (21-72); AST 26 U/L (17-59); Alkaline Phosphatase 55 U/L (38-126); Anion Gap 10 mmol/L; Blood Urea Nitrogen 6 mg/dL (9-20); Calcium 8.2 mg/dL (8.4-10.2); Carbon Dioxide 21 mmol/L (22-30); Chloride 111 mmol/L (98-107); Glucose 124 mg/dL (74-99); Non-African American GFR(MDRD) >60 (>60 ml/min/1.73 sqM); Potassium 3.6 mmol/L (3.5-5.1); Sodium 142 mmol/L (137-145); Total Bilirubin 0.5 mg/dL (0.2-1.3); Total Protein 5.9 g/dL (6.3-8.2)
[2017-06-02 11:19] VITALS: PULSE 92
--- NOTE | 2017-06-02 12:16 | P.DS ---
Providers Date of admission: 05/30/17 10:55 Attending physician: Edward Nixon Consults: 05/30/17 11:55 Consult Physician Routine Consulting Provider: Edward Carlos Consult Reason/Comments: FUO Do you want consulting provider notified?: Yes 05/31/17 21:39 Consult Physician Routine Consulting Provider: Sebastian Cha Consult Reason/Comments: colitiis Do you want consulting provider notified?: Already Contacted Primary care physician: [facility] Course: 61-year-old male one of Dr. Marshall patient with past medical history of CAD post OR angioplasty and stent placement last year history of chronic smoking history of hypertension hyperlipidemia who apparently did not feel good in the last 24 hours developed to have fever and chills on Tuesday symptoms become much worse patient is having significant shortness of breath with dyspnea ended up coming to demurs department at [facility] where was seen and evaluated his temperature continued be continue to be 102. With elevated d-dimer ended up going for CTA result came back negative for PE. Patient clinically has pneumonia cannot be find on chest x-ray or CAT scan his lactic acid slightly but elevated as well and looks septic. Blood culture was done patient will be started on gram-negative coverage with empiric antibiotics was start him on updraft treatment O2m be hospitalized consult infectious disease awaiting for the final blood culture. Urine came back negative and examining patient all over his body could not feel her find any spot of infection cellulitis abscess or lymph node enlargement. 05/30: Patient has been seen in consultation by Dr. Carlos with recommendations for vancomycin and Zosyn and CAT scan of the abdomen and pelvis with contrast which is scheduled for this afternoon. White count is improved to 13.7. Influenza testing type A and type B negative. The cultures status received, sputum culture status received and urine culture in progress. He has been afebrile since 1500 yesterday but states that he had significant sweats through the night. He is also complaining of loose stools for which probiotics and yogurt recommended. He states he feels a little bit better from yesterday but not much. 06/01/2017: CT of the abdomen showed right-sided colitis, patient was seen Dr. norwood who agreed to treat this as an infectious colitis for now patient will require colonoscopy at some point in the next few weeks. Clinically is much better not running any fever and chills will continue IV antibiotics at least till tomorrow patient will require to be on oral antibiotic including Flagyl and Levaquin for 7-10 days after his discharge. 06/02: Patient was seen and evaluated today. White count has improved and is 9.4. He is tolerating food and fluids by mouth, he remains afebrile denies any chills. Infectious disease consult appreciated. He'll be discharged home with Levaquin and Flagyl. He'll continue probiotics at home as well. He will schedule a colonoscopy on an outpatient basis. Discharge diagnoses 1 sepsis with SIRS 2 clinical pneumonitis 3 infectious colitis 4 CAD post OR post angioplasty and stent placement 5 hypertension 6 hyperlipidemia 7 GI prophylaxis/severe GERD 8 hyperglycemia 9 hematuria 10 COPD with mild exacerbation: The above impression and plan of care have been discussed and directed by signing physician. Chioma Duran nurse practitioner acting as scribe for signing physician. Patient Condition at Discharge: Stable Plan - Discharge Summary New Discharge Prescriptions: New Acetaminophen Tab [Tylenol] 1,000 mg PO Q6HR PRN tab PRN Reason: Mild Pain Or Fever > 100.5 Ibuprofen [Motrin] 400 mg PO Q4HR PRN tab PRN Reason: Fever Lactobacillus Acidoph & Bulgar [Lactinex] 1 each PO TID packet Levofloxacin [Levaquin] 500 mg PO DAILY #7 tab metroNIDAZOLE [Flagyl] 500 mg PO TID #30 tab Continue Vitamin E 100 unit PO HS Omeprazole [PriLOSEC] 40 mg PO DAILY Metoprolol Tartrate 25 mg PO BID Lisinopril [Prinivil] 5 mg PO DAILY Clopidogrel [Plavix] 75 mg PO HS Atorvastatin [Lipitor] 40 mg PO HS Aspirin [Adult Low Dose Aspirin EC] 81 mg PO HS [place]-3/Dha/Epa/Fish Oil [Fish Oil 500 mg Softgel] 1 cap PO HS Discharge Medication List Aspirin [Adult Low Dose Aspirin EC] 81 mg PO HS 05/30/17 [History] Atorvastatin [Lipitor] 40 mg PO HS 05/30/17 [History] Clopidogrel [Plavix] 75 mg PO HS 05/30/17 [History] Lisinopril [Prinivil] 5 mg PO DAILY 05/30/17 [History] Metoprolol Tartrate 25 mg PO BID 05/30/17 [History] [place]-3/Dha/Epa/Fish Oil [Fish Oil 500 mg Softgel] 1 cap PO HS 05/30/17 [History ] Omeprazole [PriLOSEC] 40 mg PO DAILY 05/30/17 [History] Vitamin E 100 unit PO HS 05/30/17 [History] Acetaminophen Tab [Tylenol] 1,000 mg PO Q6HR PRN tab 06/02/17 [Rx] Ibuprofen [Motrin] 400 mg PO Q4HR PRN tab 06/02/17 [Rx] Lactobacillus Acidoph & Bulgar [Lactinex] 1 each PO TID packet 06/02/17 [Rx] Levofloxacin [Levaquin] 500 mg PO DAILY #7 tab 06/02/17 [Rx] metroNIDAZOLE [Flagyl] 500 mg PO TID #30 tab 06/02/17 [Rx] Follow up Appointment(s)/Referral(s): Jean Marshall DO [Primary Care Provider] - 06/07/17 2:10 pm Patient Instructions/Handouts: Metronidazole (By mouth), Levofloxacin (By mouth ), Pneumonia (DC) Discharge Disposition: HOME SELF-CARE
== END 2017-06-02 12:02 | disposition home or self-care (01) | DRG 871 ==
LOC: EC 08:22 → 5MS5E 10:55
PROVIDERS: ADMIT Internal Medicine Geriatric Medicine; ATTEND Internal Medicine Geriatric Medicine
DX: A41.9 Sepsis, unspecified organism (principal); J18.9 Pneumonia, unspecified organism; J44.0 Chronic obstructive pulmonary disease with (acute) lower respiratory infection; J44.1 Chronic obstructive pulmonary disease with (acute) exacerbation; A09 Infectious gastroenteritis and colitis, unspecified; I10 Essential (primary) hypertension; I25.10 Atherosclerotic heart disease of native coronary artery without angina pectoris; I25.2 Old myocardial infarction; E78.5 Hyperlipidemia, unspecified; K21.9 Gastro-esophageal reflux disease without esophagitis; F17.200 Nicotine dependence, unspecified, uncomplicated; R31.29 Other microscopic hematuria; R73.9 Hyperglycemia, unspecified; Z95.5 Presence of coronary angioplasty implant and graft; Z79.82 Long term (current) use of aspirin; Z79.02 Long term (current) use of antithrombotics/antiplatelets; Z79.899 Other long term (current) drug therapy
CPT/HCPCS: 36415; 71020; 71275; 74177; 80048; 80053; 80202; 81001; 82550; 82553; 83605; 84484; 85025; 85027; 85379; 85610; 85730; 87040; 87045; 87046; 87070; 87086; 87205; 87324; 87502; 89055; 93005; 94640; 94760; 96361; 96365; 99285

== ENCOUNTER → 2017-06-10 | Outpatient (CLI) | payer OTHER ==
--- NOTE | 2017-06-10 12:02 | NM ---
EXAMINATION TYPE: NM hepatobiliary w EF DATE OF EXAM: 06/10/2017 COMPARISON: NONE HISTORY: Pain TECHNIQUE: After the intravenous administration of 5.23 mCi Tc 99m Mebrofenin hepatobiliary scintigra phy is performed. Immediate images post injection. FINDINGS: There is satisfactory initial accumulation of tracer by the liver. The gallbladder is visualized wit hin 34 minutes. The small bowel activity is noted within 12 minutes. At one hour 8 ounces of oral e nsure plus is given to mimic CCK and gallbladder ejection fraction is calculated at 95%. IMPRESSION: 1. Elevated gallbladder ejection fraction may reflect hypercontractile state.
== END | disposition home or self-care (01) ==
LOC: RADNMMAIN 08:56
PROVIDERS: ATTEND Family Medicine
DX: K82.8 Other specified diseases of gallbladder (principal)
CPT/HCPCS: 78226; A9537

== ENCOUNTER 2017-06-28 21:45 | Inpatient (IN) | payer OTHER ==
[2017-06-28] MEDS ORDERED: ONDANSETRON 4 MG/2 ML VIAL IVP STA (22:22)
[2017-06-28] MEDS ORDERED: SODIUM CHLORIDE 0.9% 1,000 ML IV STA (22:22)
[2017-06-28] MEDS ORDERED: HYDROmorphone 1 MG/ML 1 ML SYRINGE IVP STA (22:22)
[2017-06-28 23:31] LABS: Basophils # (A) 0.1 k/uL (0-0.2); Basophils % (A) 1 %; CH 27.1; CHCM 32.9; Eosinophils # (A) 0.4 k/uL (0-0.7); Eosinophils % (A) 4 %; HCT 47.2 % (39.0-53.0); HDW 2.38; HGB 14.9 gm/dL (13.0-17.5); Luc % (Auto) 2; Lymphocytes # (A) 2.4 k/uL (1.0-4.8); Lymphocytes % (A) 21 %; MCH 26.2 pg (25.0-35.0); MCHC 31.7 g/dL (31.0-37.0); MCV 82.5 fL (80.0-100.0); Mean Platelet Volume 9.1; Monocytes % (A) 9 %; Neutrophils # (A) 7.3 k/uL (1.3-7.7); Neutrophils % (A) 64 %; RBC 5.71 m/uL (4.30-5.90); RDW 15.6 % (11.5-15.5); WBC 11.4 k/uL (3.8-10.6); WBC (Perox) 11.48
[2017-06-28 23:40] LABS: ALT 39 U/L (21-72); AST 19 U/L (17-59); Alkaline Phosphatase 79 U/L (38-126); Amylase 212 U/L (30-110); Anion Gap 11 mmol/L; Blood Urea Nitrogen 7 mg/dL (9-20); Calcium 8.9 mg/dL (8.4-10.2); Carbon Dioxide 24 mmol/L (22-30); Chloride 104 mmol/L (98-107); Glucose 105 mg/dL (74-99); Non-African American GFR(MDRD) >60 (>60 ml/min/1.73 sqM); Sodium 139 mmol/L (137-145); Total Bilirubin 0.7 mg/dL (0.2-1.3); Total Protein 6.7 g/dL (6.3-8.2)
[2017-06-28 23:40] LABS: Appearance,Urine Clear (Clear); Bilirubin,Urine Negative (Negative); Glucose,Urine (UA) Negative (Negative); Ketones,Urine Negative (Negative); Leukocyte Esterase,Urine Negative (Negative); Nitrite,Urine Negative (Negative); Particle Count 701; Protein,Urine Negative (Negative); RBC,Urine 3 /hpf (0-5); Specific Gravity,Urine 1.012 (1.001-1.035); UA Billing (MACRO vs. MICRO) MICRO; Urobilinogen,Urine <2.0 mg/dL (<2.0); WBC,Urine <1 /hpf (0-5)
--- NOTE | 2017-06-29 00:35 | US ---
EXAM: US Abdomen Limited, Right Upper Quadrant CLINICAL HISTORY: Reason: Pain TECHNIQUE: Real-time ultrasound of the right upper quadrant with image documentation. COMPARISON: CT abdomen/pelvis on 05/31/2017 FINDINGS: Liver: Measures 16.6 cm. Normal echotexture and contour. No focal lesion. Portal vein: Patent with normal direction of flow. Gallbladder: Mildly distended gallbladder containing nonmobile stones. Borderline prominence of the gallbladder wall measuring 2.8 mm. No significant pericholecystic fluid. Biliary tree: No abnormal dilatation. Common bile duct measures 6.2 mm. Pancreas: Not well visualized due to overlying bowel gas. Right kidney: Measures 11.6 cm in length. No hydronephrosis or stone. No mass. Peritoneal space: Normal. No free fluid. Aorta: Visualized portions are unremarkable. IVC: Visualized portions are unremarkable. IMPRESSION: Cholelithiasis with borderline prominence of the gallbladder wall. No significant pericholecystic fluid. Further evaluation could be performed with HIDA scan if clinically indicated.
--- NOTE | 2017-06-29 01:09 | ED ---
Abdominal Pain HPI - General Chief Complaint: Abdominal Pain Stated Complaint: Gallbladder issue Time Seen by Provider: 06/28/17 22:21 Source: patient, RN notes reviewed, old records reviewed Mode of arrival: ambulatory Limitations: no limitations - History of Present Illness Initial Comments: This is 62-year-old male presenting to emergency room chief complaint of right upper quadrant pain that has been intermittent and slowly worsening over the past few weeks. Patient reports that he is scheduled to see Dr. Cha on July 07 for evaluation for possible electrical bladder. He did have a HIDA scan which was shown that he has stones but was somewhat inconclusive. He reports he's been monitoring for any fevers but has not had any of that is noted above. Patient states that he's had no vomiting as he has not been able to eat very much. Denies any significant diarrhea. Normal urination. - Related Data Home Medications Medication Instructions Recorded Confirmed Aspirin [Adult Low Dose Aspirin EC] 81 mg PO HS 05/30/17 06/28/17 Atorvastatin [Lipitor] 40 mg PO HS 05/30/17 06/28/17 Clopidogrel [Plavix] 75 mg PO QAM 05/30/17 06/28/17 Lisinopril [Prinivil] 5 mg PO DAILY 05/30/17 06/28/17 Metoprolol Tartrate 25 mg PO BID 05/30/17 06/28/17 [place]-3/Dha/Epa/Fish Oil [Fish Oil 1 cap PO HS 05/30/17 06/28/17 500 mg Softgel] Omeprazole [PriLOSEC] 40 mg PO DAILY 05/30/17 06/28/17 Vitamin E (Dl,Tocopheryl Acet) 400 unit PO HS 06/28/17 06/28/17 [Vitamin E] Allergies Allergy/AdvReac Type Severity Reaction Status Date / Time No Known Allergies Allergy Verified 06/28/17 22:48 Review of Systems ROS Statement: Those systems with pertinent positive or pertinent negative responses have been documented in the HPI. ROS Other: All systems not noted in ROS Statement are negative. Past Medical History Past Medical History: Coronary Artery Disease (CAD), Myocardial Infarction ([place]) , Pneumonia Additional Past Medical History / Comment(s): Pneumonia twice as a child. Last Myocardial Infarction Date:: 2015 History of Any Multi-Drug Resistant Organisms: None Reported Past Surgical History: Back Surgery, Heart Catheterization With Stent Additional Past Surgical History / Comment(s): PCI with stent in 2016 at [facility], colonoscopy. Past Anesthesia/Blood Transfusion Reactions: No Reported Reaction, Motion Sickness Date of Last Stent Placement:: 2015 Past Psychological History: No Psychological Hx Reported Smoking Status: Current every day smoker Past Alcohol Use History: None Reported Past Drug Use History: None Reported - Past Family History Father Family Medical History: Myocardial Infarction ([place]), Pneumonia Additional Family Medical History / Comment(s): Father at the age of 52 yrs from a [place]/pneumonia. Mother Family Medical History: Myocardial Infarction ([place]) Additional Family Medical History / Comment(s): Mother at the age of 67yrs from a [place]. General Exam - General Exam Comments Initial Comments: This is a 62-year-old male. Patient signed. Any acute distress. Limitations: no limitations General appearance: alert, in no apparent distress Head exam: Present: atraumatic, normocephalic, normal inspection Eye exam: Present: normal appearance, PERRL, EOMI. Absent: scleral icterus, conjunctival injection, periorbital swelling ENT exam: Present: normal exam, mucous membranes moist Neck exam: Present: normal inspection. Absent: tenderness, meningismus, lymphadenopathy Respiratory exam: Present: normal lung sounds bilaterally. Absent: respiratory distress, wheezes, rales, rhonchi, stridor Cardiovascular Exam: Present: regular rate, normal rhythm, normal heart sounds. Absent: systolic murmur, diastolic murmur, rubs, gallop, clicks GI/Abdominal exam: Present: soft, tenderness (Right upper quadrant tenderness.) , normal bowel sounds. Absent: distended, guarding, rebound, rigid Extremities exam: Present: normal inspection, full ROM, normal capillary refill. Absent: tenderness, pedal edema, joint swelling, calf tenderness Back exam: Present: normal inspection Neurological exam: Present: alert, oriented X3, CN II-XII intact Psychiatric exam: Present: normal affect, normal mood Skin exam: Present: warm, dry, intact, normal color. Absent: rash Course Vital Signs 06/28/17 06/28/17 06/29/17 21:48 23:27 00:44 Temperature 97.8 F 97.6 F 97.6 F Pulse Rate 100 91 84 Respiratory 18 16 16 Rate Blood Pressure 140/76 132/73 131/76 O2 Sat by Pulse 98 96 95 Oximetry Medical Decision Making - Medical Decision Making Patient's lab work was reviewed and showed a significantly elevated lipase of 2500. Patient ultrasound showed mildly thickened gallbladder wall. Discussed case with Dr. Spann. Patient will be admitted to Dr. Nixon for pancreatitis. They will decide for possible surgical evaluation. Patient was started on IV fluids and pain medication. - Lab Data Result diagrams: 06/28/17 23:21 06/28/17 23:21 Lab Results 06/28/17 06/28/17 06/28/17 Range/Units 23:21 23:21 23:33 WBC 11.4 H (3.8-10.6) k/uL RBC 5.71 (4.30-5.90) m/uL Hgb 14.9 (13.0-17.5) gm/dL Hct 47.2 (39.0-53.0) % MCV 82.5 (80.0-100.0) fL MCH 26.2 (25.0-35.0) pg MCHC 31.7 (31.0-37.0) g/dL RDW 15.6 H (11.5-15.5) % Plt Count 227 (150-450) k/uL Neutrophils % 64 % Lymphocytes % 21 % Monocytes % 9 % Eosinophils % 4 % Basophils % 1 % Neutrophils # 7.3 (1.3-7.7) k/uL Lymphocytes # 2.4 (1.0-4.8) k/uL Monocytes # 1.0 (0-1.0) k/uL Eosinophils # 0.4 (0-0.7) k/uL Basophils # 0.1 (0-0.2) k/uL Sodium 139 (137-145) mmol/L Potassium 4.0 (3.5-5.1) mmol/L Chloride 104 (98-107) mmol/L Carbon Dioxide 24 (22-30) mmol/L Anion Gap 11 mmol/L BUN 7 L (9-20) mg/dL Creatinine 0.87 (0.66-1.25) mg/dL Est GFR (MDRD) Af Amer >60 (>60 ml/min/1.73 sqM) Est GFR (MDRD) Non-Af >60 (>60 ml/min/1.73 sqM) Glucose 105 H (74-99) mg/dL Calcium 8.9 (8.4-10.2) mg/dL Total Bilirubin 0.7 (0.2-1.3) mg/dL AST 19 (17-59) U/L ALT 39 (21-72) U/L Alkaline Phosphatase 79 (38-126) U/L Total Protein 6.7 (6.3-8.2) g/dL Albumin 3.8 (3.5-5.0) g/dL Amylase 212 H (30-110) U/L Lipase 2544 H (23-300) U/L Urine Color Yellow Urine Appearance Clear (Clear) Urine pH 6.0 (5.0-8.0) Ur Specific [place] 1.012 (1.001-1.035) Urine Protein Negative (Negative) Urine Glucose (UA) Negative (Negative) Urine Ketones Negative (Negative) Urine Blood Trace H (Negative) Urine Nitrite Negative (Negative) Urine Bilirubin Negative (Negative) Urine Urobilinogen <2.0 (<2.0) mg/dL Ur Leukocyte Esterase Negative (Negative) Urine RBC 3 (0-5) /hpf Urine WBC <1 (0-5) /hpf - Radiology Data Radiology results: report reviewed Cholelithiasis with borderline prominence of the gallbladder wall. No significant. Colace flu. Further evaluation could be formed with hives scan. Disposition Clinical Impression: Pancreatitis, Cholelithiasis Disposition: ADMITTED IP TO THIS [facility] Condition: Stable Referrals: Jean Marshall DO [Primary Care Provider] - 1-2 days Time of Disposition: 01:09
[2017-06-29] MEDS ORDERED: ONDANSETRON 4 MG/2 ML VIAL IVP PRN (01:17)
[2017-06-29] MEDS ORDERED: NALOXONE 0.4 MG/ML 1 ML VIAL IV PRN (01:17)
[2017-06-29] MEDS ORDERED: LORazepam 2 MG/ML SYRINGE IV PRN (01:17)
[2017-06-29] MEDS ORDERED: HYDROmorphone 1 MG/ML 1 ML SYRINGE IV PRN (01:17)
[2017-06-29] MEDS: SODIUM CHLORIDE 0.9% 1,000 ML IV SCH ×3 (02:01→18:31)
[2017-06-29 03:35] VITALS: BMI 30.2
[2017-06-29] MEDS: KETOROLAC 30 MG/ML 1 ML VIAL IVP PRN ×3 (03:55→20:05)
[2017-06-29 07:39] LABS: Glucose,Whole Blood 97 mg/dL (75-99)
[2017-06-29] MEDS: LISINOPRIL 5 MG TAB PO SCH (08:05)
[2017-06-29] MEDS: METOPROLOL TARTRATE 25 MG TAB PO SCH ×2 (08:05→20:07)
[2017-06-29] MEDS: PANTOPRAZOLE 40 MG/10 ML VIAL IV SCH (08:05)
[2017-06-29] MEDS ORDERED: CLOPIDOGREL 75 MG TAB PO SCH (09:00)
[2017-06-29] MEDS ORDERED: NON-FORMULARY DRUG (Omeprazole 40 MG) PO SCH (09:00)
[2017-06-29 12:16] LABS: Glucose,Whole Blood 92 mg/dL (75-99)
--- NOTE | 2017-06-29 13:10 | P.HPIM ---
History of Present Illness H&P Date: 06/29/17 Chief Complaint: abdominal pain 62-year-old male one of Dr. Marshall patient with past medical history of CAD post [place] angioplasty and stent placement last year in April 2016 at the [facility], history of chronic smoking history of hypertension, hyperlipidemia who apparently was hospitalized at [facility] last month after he was admitted to the hospital with sepsis with lactic acidosis, that time he was seen and evaluated by general surgery underwent a computed tomography scan of the chest that was negative for pulmonary medicine however it did show evidence of emphysema, his CT of the abdomen showed large gallbladder with gallstones at the same time there was no pericholecystic fluid there was significant the colitis at that time he was given IV antibiotic and he was sent home patient was seen and by Dr. Bhagat about a week ago because of right upper quadrant abdominal pain associated with nausea but no vomiting and he has been going to work on and off with severe diarrhea over the last 3 days, patient was sent for HIDA scan with CCK that was positive for only hyperdynamic gallbladder with ejection fraction of 90% according to the patient , he was referred to see Dr. norwood however he was not able to see him until later on this month the so patient came to the ER at [facility] prior history of significant abdominal pain he was found to have an acute pancreatitis with normal ALT AST as well as bilirubin patient stated that the pain was awful to the degree that he doubled over however the pain is different than the pain that he had last time patient ended up having an ultrasound that showed done a cholelithiasis without any evidence of any enlarged common bile duct. Patient was admitted to the hospital he was started on IV fluid as well as IV pain management he will be seen in consultation by general surgery for possible laparoscopic cholecystectomy, patient was taken off his Plavix in preparation for any surgical intervention if his pancreatic enzymes are back to normal. Review of Systems Constitutional: Reports chronic pain, Reports weakness, Denies anorexia, Denies lethargy, Denies malaise, Denies weight gain, Denies weight loss Eyes: denies blurred vision, denies bulging eye, denies decreased vision, denies diplopia Ears: deny: decreased hearing Ears, nose, mouth and throat: Denies dysphagia, Denies neck lump, Denies sore throat, Denies vertigo Cardiovascular: Reports dyspnea on exertion, Reports shortness of breath, Denies chest pain, Denies claudication, Denies irregular heart beat, Denies rapid heart beat, Denies syncope Respiratory: Denies congestion, Denies cough with sputum, Denies pain, Denies sleep apnea, Denies snoring, Denies wheezing Gastrointestinal: Reports abdominal pain, Reports bloating, Reports change in bowel habits, Reports diarrhea, Reports dyspepsia, Reports indigestion, Reports nausea, Denies loss of appetite, Denies melena, Denies vomiting Genitourinary: Denies dysuria, Denies nocturia Musculoskeletal: Denies myalgias Musculoskeletal: absent: ankle pain, ankle stiffness, ankle swelling, elbow pain , elbow stiffness, elbow swelling, foot pain, foot stiffness, foot swelling, hand pain, hand stiffness, hand swelling, hip pain, hip stiffness, hip swelling , knee pain, knee stiffness, knee swelling, shoulder pain, shoulder stiffness, shoulder swelling, wrist pain, wrist stiffness, wrist swelling Integumentary: Denies pruritus, Denies rash Neurological: Denies numbness, Denies weakness Psychiatric: Denies anxiety, Denies depression Endocrine: Denies fatigue, Denies weight change Past Medical History Past Medical History: Coronary Artery Disease (CAD), COPD, GERD/Reflux, Hyperlipidemia, Hypertension, Myocardial Infarction (NH), Osteoarthritis (OA), Pneumonia Additional Past Medical History / Comment(s): Pneumonia twice as a child. Last Myocardial Infarction Date:: 2015 History of Any Multi-Drug Resistant Organisms: None Reported Past Surgical History: Adenoidectomy, Back Surgery, Heart Catheterization With Stent, Tonsillectomy Additional Past Surgical History / Comment(s): PCI with stent in 2016 at [facility], colonoscopy. Past Anesthesia/Blood Transfusion Reactions: No Reported Reaction, Motion Sickness Date of Last Stent Placement:: 2015 Past Psychological History: No Psychological Hx Reported Smoking Status: Current every day smoker (patient smokes about a pack every day he smoked since was 16-year-old, he drinks occasionally no drug use or abuse. 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 Mother Family Medical History: Myocardial Infarction (NH) Additional Family Medical History / Comment(s): Mother at the age of 67yrs from a NH. Brother(s) Family Medical History: No Reported History (patient has 2 brothers no major medical problems.) Sister(s) Family Medical History: Diabetes Mellitus (patient has 5 sisters the older has diabetes and obesity.) Daughter(s) Family Medical History: No Reported History (patient has 6 daughters no major medical problems.) Son(s) Family Medical History: No Reported History (patient has one stepson no major medical problem.) Medications and Allergies Home Medications Medication Instructions Recorded Confirmed Type Aspirin [Adult Low Dose Aspirin EC] 81 mg PO HS 05/30/17 06/28/17 History Atorvastatin [Lipitor] 40 mg PO HS 05/30/17 06/28/17 History Clopidogrel [Plavix] 75 mg PO QAM 05/30/17 06/28/17 History Lisinopril [Prinivil] 5 mg PO DAILY 05/30/17 06/28/17 History Metoprolol Tartrate 25 mg PO BID 05/30/17 06/28/17 History [place]-3/Dha/Epa/Fish Oil [Fish Oil 1 cap PO HS 05/30/17 06/28/17 History 500 mg Softgel] Omeprazole [PriLOSEC] 40 mg PO DAILY 05/30/17 06/28/17 History Vitamin E (Dl,Tocopheryl Acet) 400 unit PO HS 06/28/17 06/28/17 History [Vitamin E] Allergies Allergy/AdvReac Type Severity Reaction Status Date / Time No Known Allergies Allergy Verified 06/28/17 22:48 Physical Exam Vitals: Vital Signs Temp Pulse Pulse Resp BP BP Pulse Ox 06/29/17 08:00 18 06/29/17 07:00 97.3 F L 78 18 106/70 97 06/29/17 03:28 98.0 F 84 16 119/76 94 L 06/29/17 02:55 97.4 F L 77 18 119/74 94 L 06/29/17 02:02 97.6 F 78 18 164/87 94 L 06/29/17 00:44 97.6 F 84 16 131/76 95 06/28/17 23:27 97.6 F 91 16 132/73 96 06/28/17 21:48 97.8 F 100 18 140/76 98 Intake and Output 06/28/17 06/29/17 06/29/17 22:59 06:59 14:59 Intake Total 398 Balance 398 Intake: Intake, IV Titration 398 Amount Sodium Chloride 0.9% 1, 398 000 ml @ 120 mls/hr IV . Q8H20M ASPEN Rx#:[id number] Other: Voiding Method Toilet # Voids 2 Weight 106.594 kg 106.594 kg - Constitutional General appearance: mild distress - EENT Eyes: anicteric sclerae, EOMI, PERRLA, no ptosis, no scleral icterus, normal appearance ENT: hearing grossly normal, NA/AT, normal oropharynx, no thrush Ears: bilateral: normal - Neck Neck: no lymphadenopathy, normal ROM, no rigidity, no stridor, no thyromegaly Carotids: bilateral: upstroke normal Thyroid: bilateral: normal size - Respiratory Respiratory: bilateral: diminished, prolonged expiration, negative: dullness, rales, rhonchi, wheezing - Cardiovascular Rhythm: regular Heart sounds: normal: S1, S2 Abnormal Heart Sounds: systolic murmur, no S3 Gallop, no S4 Gallop, no click - Gastrointestinal General gastrointestinal: normal bowel sounds, soft, no splenomegaly, no tenderness, no umbilical hernia, no ventral hernia - Genitourinary Male genitourinary: enlarged prostate - Integumentary Integumentary: normal, normal turgor - Neurologic Neurologic: CNII-XII intact - Musculoskeletal Musculoskeletal: strength equal bilaterally - Psychiatric Psychiatric: A&O x's 3, appropriate affect, intact judgment & insight Results CBC & Chem 7: 06/28/17 23:21 06/28/17 23:21 Labs: Abnormal Lab Results - Last 24 Hours (Table) 06/28/17 06/28/17 06/28/17 Range/Units 23:21 23:21 23:33 WBC 11.4 H (3.8-10.6) k/uL RDW 15.6 H (11.5-15.5) % BUN 7 L (9-20) mg/dL Glucose 105 H (74-99) mg/dL Amylase 212 H (30-110) U/L Lipase 2544 H (23-300) U/L Urine Blood Trace H (Negative) Thrombosis Risk Factor Assmnt - DVT/VTE Prophylaxis DVT/VTE Prophylaxis: Pharmacologic Prophylaxis ordered, Mechanical Prophylaxis ordered - Choose All That Apply Any of the Below Risk Factors Present?: Yes Each Risk Factor Represents 2 Points: Age 61-74 years Other congenital or acquired thrombophilia - If yes, enter type in comment: No Thrombosis Risk Factor Assessment Total Risk Factor Score: 2 Thrombosis Risk Factor Assessment Level: Low Risk Assessment and Plan Plan: Assessment and plan: 1. Acute pancreatitis likely related to Galllstones. The this is an indication for Laparoscopic cholecystectomy we will wait for the repeated pancreatic enzymes to go back to normal, patient did have a HIDA scan with CCK as an outpatient that was negative for biliary dyskinesia however it did show hyperdynamic gallbladder, I spoke with the patient about options of treatment at this point we will hold his Plavix for now I think the patient will need to have lap emerson whether this admission or as an outpatient. 2. Recent history of the colitis affecting cardiology. Patient will need to go for colonoscopy he has last one about 6 years ago and thus needs to be done as well. 3. CAD post-PCI. Continue patient on the aspirin 81 mg orally once every day, Lipitor 40 mg orally once every day, metoprolol 25 mg orally twice every day, hold Plavix for now. 4. Hypertension and hypertensive cardiovascular disease. Continue lisinopril 5 mg orally once every day, metoprolol 25 mg orally twice every day. 5. Hyperlipidemia. Continue Lipitor 40 mg orally once every day. 6. Chronic tobacco use and dependence. Smoking cessation and counseling an increased risk of CAD, CVA, and malignancy. 7. COPD/emphysema. Patient will need to be counseled about smoking cessation and he will need to have pulmonary function tests as an outpatient. 8. DVT prophylaxis. Heparin 5000 units subcutaneously every 12 hours, bilateral knee-high [place] hose. 9. GI prophylaxis. Protonix 40 mg orally once every day. 10. Admit to inpatient. Estimate length of stay 2 midnights. 11. Patient is full code.
[2017-06-29] MEDS: HEPARIN SODIUM,PORCINE 5,000 UNIT/ML 1 ML VIAL SQ SCH (20:06)
[2017-06-29] MEDS ORDERED: ATORVASTATIN 40 MG TAB PO SCH (21:00)
[2017-06-29] MEDS ORDERED: VITAMIN E (DL,TOCOPHERYL ACET) 400 UNIT CAP PO SCH (21:00)
[2017-06-29] MEDS ORDERED: NON-FORMULARY DRUG (Omega-3/Dha/Epa/Fish Oil [Fish Oil 500 Mg Softgel] 1 CAP) PO SCH (21:00)
[2017-06-29] MEDS ORDERED: ASPIRIN 81 MG CHEW PO SCH (21:00)
--- NOTE | 2017-06-29 22:55 | P.GSCN ---
History of Present Illness Consult date: 06/29/17 Reason for Consult: Gallstone pancreatitis History of present illness: Patient is known to our service. Hospitalized last month for enteritis/ colitis. Now presents with right upper quadrant pain. Labs show an elevated amylase and lipase. Sound shows gallstones. Pain slightly better today. He does take Plavix daily. Last dose today. He is afebrile.No alcohol use. Review of Systems The patient denies any acute changes in his vision or hearing, no dysphagia or odynophagia, no chest pain or shortness of breath, no dysuria or hematuria, no headache, no runny nose, no rectal bleeding or melena, no unexplained weight loss Past Medical History Past Medical History: Coronary Artery Disease (CAD), COPD, GERD/Reflux, Hyperlipidemia, Hypertension, Myocardial Infarction (LA), Osteoarthritis (OA), Pneumonia Additional Past Medical History / Comment(s): Pneumonia twice as a child. Last Myocardial Infarction Date:: 2015 History of Any Multi-Drug Resistant Organisms: None Reported Past Surgical History: Adenoidectomy, Back Surgery, Heart Catheterization With Stent, Tonsillectomy Additional Past Surgical History / Comment(s): PCI with stent in 2016 at [facility], colonoscopy. Past Anesthesia/Blood Transfusion Reactions: No Reported Reaction, Motion Sickness Date of Last Stent Placement:: 2015 Past Psychological History: No Psychological Hx Reported Smoking Status: Current every day smoker (patient smokes about a pack every day he smoked since was 16-year-old, he drinks occasionally no drug use or abuse. 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 Mother Family Medical History: Myocardial Infarction (LA) Additional Family Medical History / Comment(s): Mother at the age of 67yrs from a LA. Brother(s) Family Medical History: No Reported History (patient has 2 brothers no major medical problems.) Sister(s) Family Medical History: Diabetes Mellitus (patient has 5 sisters the older has diabetes and obesity.) Daughter(s) Family Medical History: No Reported History (patient has 6 daughters no major medical problems.) Son(s) Family Medical History: No Reported History (patient has one stepson no major medical problem.) Medications and Allergies Home Medications Medication Instructions Recorded Confirmed Type Aspirin [Adult Low Dose Aspirin EC] 81 mg PO HS 05/30/17 06/28/17 History Atorvastatin [Lipitor] 40 mg PO HS 05/30/17 06/28/17 History Clopidogrel [Plavix] 75 mg PO QAM 05/30/17 06/28/17 History Lisinopril [Prinivil] 5 mg PO DAILY 05/30/17 06/28/17 History Metoprolol Tartrate 25 mg PO BID 05/30/17 06/28/17 History [place]-3/Dha/Epa/Fish Oil [Fish Oil 1 cap PO HS 05/30/17 06/28/17 History 500 mg Softgel] Omeprazole [PriLOSEC] 40 mg PO DAILY 05/30/17 06/28/17 History Vitamin E (Dl,Tocopheryl Acet) 400 unit PO HS 06/28/17 06/28/17 History [Vitamin E] Allergies Allergy/AdvReac Type Severity Reaction Status Date / Time No Known Allergies Allergy Verified 06/28/17 22:48 Surgical - Exam Vital Signs Temp Pulse Resp BP Pulse Ox 97.8 F 100 18 140/76 98 06/28/17 21:48 06/28/17 21:48 06/28/17 21:48 06/28/17 21:48 06/28/17 21:48 Physical exam: General: Well-developed, well-nourished HEENT: Normocephalic, sclerae nonicteric Abdomen:Mild right upper quadrant tenderness, nondistended Extremities: No edema Neuro: Alert and oriented Results - Labs 06/28/17 23:21 06/28/17 23:21 Abnormal Lab Results - Last 24 Hours (Table) 06/28/17 06/28/17 06/28/17 Range/Units 23:21 23:21 23:33 WBC 11.4 H (3.8-10.6) k/uL RDW 15.6 H (11.5-15.5) % BUN 7 L (9-20) mg/dL Glucose 105 H (74-99) mg/dL Amylase 212 H (30-110) U/L Lipase 2544 H (23-300) U/L Urine Blood Trace H (Negative) Diabetes panel 06/28/17 Range/Units 23:21 Sodium 139 (137-145) mmol/L Potassium 4.0 (3.5-5.1) mmol/L Chloride 104 (98-107) mmol/L Carbon Dioxide 24 (22-30) mmol/L BUN 7 L (9-20) mg/dL Creatinine 0.87 (0.66-1.25) mg/dL Glucose 105 H (74-99) mg/dL Calcium 8.9 (8.4-10.2) mg/dL AST 19 (17-59) U/L ALT 39 (21-72) U/L Alkaline Phosphatase 79 (38-126) U/L Total Protein 6.7 (6.3-8.2) g/dL Albumin 3.8 (3.5-5.0) g/dL Calcium panel 06/28/17 Range/Units 23:21 Calcium 8.9 (8.4-10.2) mg/dL Albumin 3.8 (3.5-5.0) g/dL Pituitary panel 06/28/17 Range/Units 23:21 Sodium 139 (137-145) mmol/L Potassium 4.0 (3.5-5.1) mmol/L Chloride 104 (98-107) mmol/L Carbon Dioxide 24 (22-30) mmol/L BUN 7 L (9-20) mg/dL Creatinine 0.87 (0.66-1.25) mg/dL Glucose 105 H (74-99) mg/dL Calcium 8.9 (8.4-10.2) mg/dL Adrenal panel 06/28/17 Range/Units 23:21 Sodium 139 (137-145) mmol/L Potassium 4.0 (3.5-5.1) mmol/L Chloride 104 (98-107) mmol/L Carbon Dioxide 24 (22-30) mmol/L BUN 7 L (9-20) mg/dL Creatinine 0.87 (0.66-1.25) mg/dL Glucose 105 H (74-99) mg/dL Calcium 8.9 (8.4-10.2) mg/dL Total Bilirubin 0.7 (0.2-1.3) mg/dL AST 19 (17-59) U/L ALT 39 (21-72) U/L Alkaline Phosphatase 79 (38-126) U/L Total Protein 6.7 (6.3-8.2) g/dL Albumin 3.8 (3.5-5.0) g/dL Assessment and Plan (1) Pancreatitis Narrative/Plan: Continue nothing by mouth. Recheck labs tomorrow. Plan cholecystectomy likely shortly after discharge. Status: Acute
[2017-06-30] MEDS: SODIUM CHLORIDE 0.9% 1,000 ML IV SCH (03:54)
[2017-06-30] MEDS: KETOROLAC 30 MG/ML 1 ML VIAL IVP PRN (05:39)
[2017-06-30] MEDS: HEPARIN SODIUM,PORCINE 5,000 UNIT/ML 1 ML VIAL SQ SCH (07:35)
[2017-06-30] MEDS: METOPROLOL TARTRATE 25 MG TAB PO SCH (07:37)
[2017-06-30] MEDS: PANTOPRAZOLE 40 MG/10 ML VIAL IV SCH (07:37)
[2017-06-30] MEDS: LISINOPRIL 5 MG TAB PO SCH (07:37)
[2017-06-30 08:09] LABS: Basophils # (A) 0.1 k/uL (0-0.2); Basophils % (A) 1 %; CHCM 31.6; Eosinophils # (A) 0.2 k/uL (0-0.7); Eosinophils % (A) 3 %; HCT 41.3 % (39.0-53.0); HDW 2.35; HGB 13.1 gm/dL (13.0-17.5); Luc # (Auto) 0.17; Luc % (Auto) 2; Lymphocytes # (A) 1.5 k/uL (1.0-4.8); Lymphocytes % (A) 19 %; MCH 26.1 pg (25.0-35.0); MCHC 31.6 g/dL (31.0-37.0); MCV 82.5 fL (80.0-100.0); Mean Platelet Volume 8.3; Monocytes # (A) 0.6 k/uL (0-1.0); Monocytes % (A) 8 %; Neutrophils # (A) 5.1 k/uL (1.3-7.7); Neutrophils % (A) 67 %; WBC 7.7 k/uL (3.8-10.6); WBC (Perox) 7.83
[2017-06-30 08:17] LABS: ALT 35 U/L (21-72); AST 21 U/L (17-59); Alkaline Phosphatase 72 U/L (38-126); Amylase <30 U/L (30-110); Anion Gap 7 mmol/L; Blood Urea Nitrogen 8 mg/dL (9-20); Calcium 8.2 mg/dL (8.4-10.2); Carbon Dioxide 24 mmol/L (22-30); Chloride 108 mmol/L (98-107); Glucose 103 mg/dL (74-99); Non-African American GFR(MDRD) >60 (>60 ml/min/1.73 sqM); Potassium 4.2 mmol/L (3.5-5.1); Sodium 139 mmol/L (137-145); Total Protein 5.8 g/dL (6.3-8.2)
[2017-06-30 08:47] VITALS: BP 128/75; PULSE 81; RESP 18; TEMP 97.8
--- NOTE | 2017-06-30 14:24 | P.DS ---
Providers Date of admission: 06/29/17 01:56 Expected date of discharge: 06/30/17 Attending physician: Edward Nixon Consults: 06/29/17 08:17 Consult Physician Routine Consulting Provider: Sebastian Cha Reason/Comments: PANCREATITIS/CHOLEYLITHIASIS Do you want consulting provider notified?: Yes Primary care physician: Jean [facility] Course: 62-year-old male one of Dr. Marshall patient with past medical history of CAD post [place] angioplasty and stent placement last year in April 2016 at the [facility], history of chronic smoking history of hypertension, hyperlipidemia who apparently was hospitalized at [facility] last month after he was admitted to the hospital with sepsis with lactic acidosis, that time he was seen and evaluated by general surgery underwent a computed tomography scan of the chest that was negative for pulmonary medicine however it did show evidence of emphysema, his CT of the abdomen showed large gallbladder with gallstones at the same time there was no pericholecystic fluid there was significant the colitis at that time he was given IV antibiotic and he was sent home patient was seen and by Dr. Bhagat about a week ago because of right upper quadrant abdominal pain associated with nausea but no vomiting and he has been going to work on and off with severe diarrhea over the last 3 days, patient was sent for HIDA scan with CCK that was positive for only hyperdynamic gallbladder with ejection fraction of 90% according to the patient , he was referred to see Dr. norwood however he was not able to see him until later on this month the so patient came to the ER at [facility] prior history of significant abdominal pain he was found to have an acute pancreatitis with normal ALT AST as well as bilirubin patient stated that the pain was awful to the degree that he doubled over however the pain is different than the pain that he had last time patient ended up having an ultrasound that showed done a cholelithiasis without any evidence of any enlarged common bile duct. Patient was admitted to the hospital he was started on IV fluid as well as IV pain management he will be seen in consultation by general surgery for possible laparoscopic cholecystectomy, patient was taken off his Plavix in preparation for any surgical intervention if his pancreatic enzymes are back to normal. 06/30: Patient has been seen and evaluated by Dr. Cha with plan to recheck labs in the morning and cholecystectomy shortly after discharge. Repeat amylase is less than 30 and lipase 199. Abdominal pain is controlled and patient does not want any narcotics for home. Patient is tolerating clear liquid diet which is to be continued at home. Patient will remain off Plavix, vitamins and omega-3. Patient will follow-up next week with Dr. Cha with plan for cholecystectomy.. Discharge diagnoses: 1. Acute pancreatitis likely related to Galllstones. 2. Recent history of the colitis. Patient will need to go for colonoscopy he has last one about 6 years ago and thus needs to be done as well. 3. CAD post-PCI. 4. Hypertension and hypertensive cardiovascular disease. 5. Hyperlipidemia. 6. Chronic tobacco use and dependence. 7. COPD/emphysema. Discharge plan: Home Impression and plan of care have been directed as dictated by the signing physician. Janay Wise nurse practitioner acting as scribe for signing physician. Cc: Dr. Marshall Patient Condition at Discharge: Good Plan - Discharge Summary New Discharge Prescriptions: Continue Omeprazole [PriLOSEC] 40 mg PO DAILY Metoprolol Tartrate 25 mg PO BID Lisinopril [Prinivil] 5 mg PO DAILY Atorvastatin [Lipitor] 40 mg PO HS Aspirin [Adult Low Dose Aspirin EC] 81 mg PO HS [place]-3/Dha/Epa/Fish Oil [Fish Oil 500 mg Softgel] 1 cap PO HS Vitamin E (Dl,Tocopheryl Acet) [Vitamin E] 400 unit PO HS Clopidogrel [Plavix] 75 mg PO QAM #0 Discharge Medication List Aspirin [Adult Low Dose Aspirin EC] 81 mg PO HS 05/30/17 [History] Atorvastatin [Lipitor] 40 mg PO HS 05/30/17 [History] Lisinopril [Prinivil] 5 mg PO DAILY 05/30/17 [History] Metoprolol Tartrate 25 mg PO BID 05/30/17 [History] [place]-3/Dha/Epa/Fish Oil [Fish Oil 500 mg Softgel] 1 cap PO HS 05/30/17 [History ] Omeprazole [PriLOSEC] 40 mg PO DAILY 05/30/17 [History] Vitamin E (Dl,Tocopheryl Acet) [Vitamin E] 400 unit PO HS 06/28/17 [History] Clopidogrel [Plavix] 75 mg PO QAM #0 06/30/17 [Rx] Follow up Appointment(s)/Referral(s): Sebastian Cha MD [Medical Doctor] - 07/07/17 10:00 am () Jean Marshall DO [Primary Care Provider] - 07/04/17 11:30 am Patient Instructions/Handouts: Pancreatitis (DC), Gallstones (DC) Activity/Diet/Wound Care/Special Instructions: Hold vitamins, omega 3 and Plavix until after surgery. OK to continune baby aspirin. Discharge Disposition: HOME SELF-CARE
== END 2017-06-30 11:20 | disposition home or self-care (01) | DRG 440 ==
LOC: EC 21:45 → 5MS5E 06-29 01:56
PROVIDERS: ADMIT Internal Medicine Geriatric Medicine; ATTEND Internal Medicine Geriatric Medicine
DX: K85.10 Biliary acute pancreatitis without necrosis or infection (principal); I11.9 Hypertensive heart disease without heart failure; I25.10 Atherosclerotic heart disease of native coronary artery without angina pectoris; K80.20 Calculus of gallbladder without cholecystitis without obstruction; E78.5 Hyperlipidemia, unspecified; K21.9 Gastro-esophageal reflux disease without esophagitis; I25.2 Old myocardial infarction; M19.91 Primary osteoarthritis, unspecified site; F17.200 Nicotine dependence, unspecified, uncomplicated; J44.9 Chronic obstructive pulmonary disease, unspecified; Z79.82 Long term (current) use of aspirin; Z79.02 Long term (current) use of antithrombotics/antiplatelets; Z79.899 Other long term (current) drug therapy; Z95.5 Presence of coronary angioplasty implant and graft
CPT/HCPCS: 36415; 76705; 80053; 81001; 82150; 83690; 85025; 96361; 96374; 96375; 99285

== ENCOUNTER 2017-07-11 09:41 | Day surgery (SDC) | payer OTHER ==
[2017-07-07 14:29] VITALS: BMI 29.4
[~2017-07-11 09:41] MED LIST: LACTATED RINGERS 1,000 ML IV SCH; LIDOCAINE 1% 20 ML VIAL (10MG/ML) FOR IV START INTRADERMA PRN
[2017-07-11 10:01] VITALS: RESP 16; TEMP 97.1
[2017-07-11] MEDS ORDERED: LIDOCAINE 1% 20 ML VIAL (10MG/ML) FOR IV START INTRADERMA ONE (10:10)
[2017-07-11 10:21] LABS: Basophils # (A) 0.1 k/uL (0-0.2); Basophils % (A) 1 %; CH 27.3; CHCM 33.5; Eosinophils # (A) 0.2 k/uL (0-0.7); Eosinophils % (A) 2 %; HCT 46.9 % (39.0-53.0); HDW 2.44; HGB 15.1 gm/dL (13.0-17.5); Luc % (Auto) 2; Lymphocytes % (A) 22 %; MCH 26.3 pg (25.0-35.0); MCHC 32.1 g/dL (31.0-37.0); MCV 81.8 fL (80.0-100.0); Mean Platelet Volume 8.9; Monocytes # (A) 0.8 k/uL (0-1.0); Monocytes % (A) 9 %; Neutrophils # (A) 5.8 k/uL (1.3-7.7); Neutrophils % (A) 64 %; RBC 5.73 m/uL (4.30-5.90); RDW 15.2 % (11.5-15.5); WBC (Perox) 8.55
[2017-07-11 10:34] LABS: ALT 32 U/L (21-72); AST 25 U/L (17-59); Alkaline Phosphatase 87 U/L (38-126); Amylase <30 U/L (30-110); Anion Gap 11 mmol/L; Blood Urea Nitrogen 5 mg/dL (9-20); Calcium 9.2 mg/dL (8.4-10.2); Carbon Dioxide 25 mmol/L (22-30); Chloride 105 mmol/L (98-107); Glucose 108 mg/dL (74-99); Non-African American GFR(MDRD) >60 (>60 ml/min/1.73 sqM); Potassium 4.4 mmol/L (3.5-5.1); Sodium 141 mmol/L (137-145); Total Bilirubin 0.9 mg/dL (0.2-1.3)
[2017-07-11] MEDS ORDERED: LIDOCAINE 1% INJ 10MG/ML (20 ML MDV) ONE (10:34)
[2017-07-11] MEDS ORDERED: GLYCOPYRROLATE 0.2 MG/ML 2 ML VIAL ONE (10:34)
[2017-07-11] MEDS ORDERED: fentaNYL (PF) 50 MCG/ML 2 ML AMP ONE (10:34)
[2017-07-11] MEDS ORDERED: MIDAZOLAM 2 MG/2 ML VIAL ONE (10:34)
[2017-07-11] MEDS ORDERED: PROPOFOL 10 MG/ML 20 ML VIAL IV ONE (10:34)
--- NOTE | 2017-07-11 11:24 | P.PCN ---
Date of Procedure: 07/11/17 Preoperative Diagnosis: Postoperative Diagnosis: Procedure(s) Performed: PREOPERATIVE DIAGNOSIS: Abdominal pain, change in bowel habits POSTOPERATIVE DIAGNOSIS: Gastritis, descending colon polyp, sigmoid colon polyp , rectal polyp PROCEDURE: 1. EGD with biopsy 2. Colonoscopy with biopsy and snare [place] [facility] [place]: Sebastian Cha M.D. SPECIMENS: Antrum, polyps ENDOSCOPIC PROCEDURE: The patient was on the endoscopy table in the left decubitus position. The Olympus gastroscope was inserted into the oropharynx and passed under direct visualization to the region of the third portion of the duodenum. From that point the scope was slowly withdrawn inspecting all surfaces carefully. There were no neoplastic inflammatory or polypoid lesions throughout the duodenum. The pylorus was widely patent. The stomach was carefully inspected. There was mild gastritis present. A biopsy of the antrum took place to rule out H. pylori. Retroflexion revealed a normal hiatus. The esophagus was then carefully examined. There were no neoplastic inflammatory or polypoid lesions throughout the visualized esophagus. The patient was kept on the endoscopy table in the left decubitus position. The Olympus colonoscope was inserted into the anus and passed under direct visualization to the base of the cecum. The appendiceal orifice was visualized. From that point the scope was slowly withdrawn inspecting all surfaces carefully. There were no neoplastic inflammatory or polypoid lesions throughout the cecum, ascending, and transverse colon. In the descending colon was noted to be a small polyp that was removed using the cold biopsy forceps. In the sigmoid colon there was a larger polyp measuring still less than 1 cm in size. This appeared somewhat indurated. This was removed using a snare with cautery technique. In the rectum distally a small polyp was identified and removed in a similar fashion. No visible diverticulosis was seen. Digital rectal examination was normal. The patient was taken to the recovery room in stable condition per anesthesia guidelines. RECOMMENDATIONS: Await biopsy results. Proceed with cholecystectomy Tuesday. Implants: Indications for Procedure: Operative Findings: Description of Procedure:
[2017-07-11 11:28] VITALS: PULSE 87
[2017-07-11 11:43] VITALS: BP 107/71
== END 2017-07-11 11:56 | disposition home or self-care (01) ==
LOC: ORWHC2ENDO 09:41
PROVIDERS: ATTEND Surgery
DX: K29.50 Unspecified chronic gastritis without bleeding (principal); D12.5 Benign neoplasm of sigmoid colon; K63.5 Polyp of colon; K62.1 Rectal polyp; R19.4 Change in bowel habit; K85.90 Acute pancreatitis without necrosis or infection, unspecified; I25.10 Atherosclerotic heart disease of native coronary artery without angina pectoris; J44.9 Chronic obstructive pulmonary disease, unspecified; K21.9 Gastro-esophageal reflux disease without esophagitis; E78.5 Hyperlipidemia, unspecified; I10 Essential (primary) hypertension; I25.2 Old myocardial infarction; M19.90 Unspecified osteoarthritis, unspecified site; Z95.5 Presence of coronary angioplasty implant and graft; Z79.02 Long term (current) use of antithrombotics/antiplatelets; Z79.82 Long term (current) use of aspirin; Z79.899 Other long term (current) drug therapy
CPT/HCPCS: 88305; 80053; 82150; 85025; 88342; 45380; 45385; 43239; J2250; J2001; J3010; J2704

== ENCOUNTER 2017-07-13 06:18 | Day surgery (SDC) | payer OTHER ==
[2017-07-07 15:14] VITALS: BMI 29.4
[~2017-07-13 06:18] MED LIST changes: +DEXAMETHASONE SOD PHOSPHATE 10 MG/ML 1 ML VIAL IV ONE; +HEPARIN SODIUM,PORCINE 5,000 UNIT/ML 1 ML VIAL SQ ONE; +HYDROmorphone 1 MG/ML 1 ML SYRINGE IVP PRN; -LIDOCAINE 1% 20 ML VIAL (10MG/ML) FOR IV START INTRADERMA PRN; +ONDANSETRON 4 MG/2 ML VIAL IVP ONE; +ceFAZolin 2 GM in SODIUM CHLORIDE 0.9% 100 ML IVPB ONE
[2017-07-13] MEDS ORDERED: LIDOCAINE 1% 20 ML VIAL (10MG/ML) FOR IV START INTRADERMA ONE (06:50)
[2017-07-13] MEDS ORDERED: BUPIVACAINE (PF) 0.25% 30 ML VIAL SQ ONE ×2 (07:17)
[2017-07-13] MEDS ORDERED: LIDOCAINE 1% INJ 10MG/ML (20 ML MDV) ONE (07:59)
[2017-07-13] MEDS ORDERED: ROCURONIUM BROMIDE 10 MG/ML 10 ML VIAL IV ONE (07:59)
[2017-07-13] MEDS ORDERED: KETOROLAC 30 MG/ML 1 ML VIAL ONE (07:59)
[2017-07-13] MEDS ORDERED: SUCCINYLCHOLINE CHLORIDE 100 MG/5 ML SYR IV ONE (07:59)
[2017-07-13] MEDS ORDERED: PROPOFOL 10 MG/ML 20 ML VIAL IV ONE (07:59)
[2017-07-13] MEDS ORDERED: fentaNYL (PF) 50 MCG/ML 2 ML AMP ONE (07:59)
[2017-07-13] MEDS ORDERED: NEOSTIGMINE 1 MG/ML 10 ML VIAL ONE (07:59)
[2017-07-13] MEDS ORDERED: HYDROmorphone (PF) 1 MG/ML ONE (07:59)
[2017-07-13] MEDS ORDERED: MIDAZOLAM 2 MG/2 ML VIAL ONE (07:59)
[2017-07-13] MEDS ORDERED: GLYCOPYRROLATE 0.2 MG/ML 2 ML VIAL ONE (07:59)
[2017-07-13] MEDS ORDERED: SODIUM CHLORIDE 0.9% 1,000 ML IV ONE (08:35)
[2017-07-13] MEDS ORDERED: HYDROcodone/APAP 5-325MG 1 EACH TAB PO PRN (09:11)
[2017-07-13] MEDS ORDERED: NALOXONE 0.4 MG/ML 1 ML VIAL IV PRN (09:11)
--- NOTE | 2017-07-13 09:14 | P.OP ---
Date of Procedure: 07/13/17 Preoperative Diagnosis: Postoperative Diagnosis: Procedure(s) Performed: PREOPERATIVE DIAGNOSIS: Gallstone pancreatitis POSTOPERATIVE DIAGNOSIS: Same PROCEDURE: Laparoscopic cholecystectomy SURGEON: Starla EBL: Minimal see anesthesia record ANESTHESIA: Gen. COMPLICATIONS: None OPERATIVE PROCEDURE: The patient was brought and placed on the operating room table in the supine position. The patient was placed under general anesthesia at that time. The abdomen was prepped and draped in the usual sterile fashion. A small vertical infraumbilical incision was made. The fascia was grasped with the Emily forceps. The fascia was retracted anteriorly. The Veress needle was advanced into the peritoneal cavity. The saline drop test was normal. Insufflation took place up to 15 mmHg. A 5 mm optical trocar was advanced and the peritoneal cavity. 2 additional 5 mm trochars were placed in the right upper quadrant under direct visualization. A 10 mm trocar was advanced into the epigastric incision site. The patient had some residual inflammation of the peritoneum consistent with recent pancreatitis. The gallbladder itself was inflamed as well with a thickened wall. There were some adhesions around the gallbladder between the omentum and the gallbladder that were divided using both blunt dissection and electrocautery. The gallbladder was retracted superiorly and laterally. The peritoneum overlying the infundibulum was bluntly dissected. The patient's cystic duct was visualized. The junction between the cystic duct common and hepatic duct was identified. The cystic duct was prominent in diameter consistent with the recent passage of stones. The cystic duct was divided using a 2-0 Ethibond stitch tied down using a tie knot device. An additional 10 mm clip was placed on the patient's side as well. The cystic duct was then divided on the other side of the clip. The cystic artery was identified and clipped as well. A small vessel was seen along the gallbladder fossa and clipped as well. The gallbladder was then removed from the liver bed using electrocautery. The gallbladder was then removed from the epigastric trocar site with an Endo Catch bag. The gallbladder fossa was irrigated with saline. There was no evidence of any bleeding or biliary drainage seen. The trochars were then removed. The fascia at the 10 millimeter site was closed using a Kyle-Oscar 0 Vicryl stitch. The skin at all 4 sites was closed using a 4-0 Monocryl stitch. At the end of this procedure the sponge and needle counts were correct. DISPOSITION: Stable to the recovery room Implants: Indications for Procedure: Operative Findings: Description of Procedure:
[2017-07-13 09:27] VITALS: TEMP 97.6
[2017-07-13 10:23] VITALS: BP 107/69; PULSE 90; RESP 18
[2017-07-13] MEDS ORDERED: HYDROcodone/APAP 5-325MG 1 EACH TAB PO ONE (10:56)
== END 2017-07-13 12:32 | disposition home or self-care (01) ==
LOC: OR 06:18
PROVIDERS: ATTEND Surgery
DX: K85.10 Biliary acute pancreatitis without necrosis or infection (principal); K66.0 Peritoneal adhesions (postprocedural) (postinfection); F17.200 Nicotine dependence, unspecified, uncomplicated; I25.10 Atherosclerotic heart disease of native coronary artery without angina pectoris; I10 Essential (primary) hypertension; I25.2 Old myocardial infarction; K21.9 Gastro-esophageal reflux disease without esophagitis; Z79.02 Long term (current) use of antithrombotics/antiplatelets; Z79.82 Long term (current) use of aspirin; Z79.899 Other long term (current) drug therapy
CPT/HCPCS: 88304; 47562; J2250; J1644; J1100; J2710; J0690; J2405; J2001; J3010; J1885; J1170; J0330; J2704

== ENCOUNTER → 2017-10-14 | Outpatient (CLI) | payer OTHER ==
--- NOTE | 2017-10-14 14:34 | CT ---
EXAMINATION TYPE: CT abdomen pelvis w con DATE OF EXAM: 10/14/2017 COMPARISON: NONE HISTORY: Patient complains of epigastric pain and fullness. Patient has had pain since his prior chol ecystectomy. CT DLP: 1383.3 mGycm Automated exposure control for dose reduction was used. TECHNIQUE: Helical acquisition of images was performed from the lung bases through the pelvis. CONTRAST: Performed with Oral Contrast and with IV Contrast, patient injected with 100 mL of Omnipaque 300. FINDINGS: LUNG BASES: Trace left pleural effusion and left basilar subsegmental atelectasis is noted. LIVER/GB: Gallbladder is surgically absent. Fluid attenuated hepatic cyst is seen peripherally within segment 8 of the liver on series 8 image 14 measuring 9 mm. There is a somewhat nodular contour the liver suggesting underlying hepatocellular disease and possibly cirrhosis. PANCREAS: Unremarkable in morphology. No ductal dilatation. SPLEEN: Prominent in size measuring 13.4 cm in craniocaudal dimension. Perisplenic fluid is noted. ADRENALS: No significant abnormality is seen. KIDNEYS: Fluid attenuated renal cysts measure 8 mm in the right lower pole and 3.1 cm and the left mi dpole with adjacent to small to accurately characterize 6 mm lesion. Additionally within the anterior cortex of the mid extending into the lower pole laterally of the left kidney there is a focal wedge- shaped area of hypoattenuation suggesting either pyelonephritis or renal infarct. No sparing of the p eriphery of the cortex is seen. There is also an associated area of cortical retraction. No significa nt perinephric fat stranding or abscess is seen. FREE AIR: No free air is visualized. ADENOPATHY: Paraesophageal lymph node measuring 1.5 x 1.0 cm is seen on series 8 image 10 just prior to the diaphragmatic hiatus. Multiple prominent lymph nodes are seen in the region of the gastrohepat ic ligament such as on series 4 image 21 measuring 7 mm in short axis, on series 4 image 25 measuring 1.0 cm in short axis and within the periportal region measuring 1.4 cm in short axis. The previously seen clustered right lower quadrant lymph nodes have nearly all decreased in size with the largest m easuring 6 mm in short axis and the remaining sub-4 mm. REPRODUCTIVE ORGANS: No significant abnormality is seen URINARY BLADDER: Decompressed and incompletely evaluated OSSEOUS STRUCTURES: No significant abnormality is seen. Degenerative changes are noted at the lumbos acral junction. BOWEL: The previously seen bowel wall thickening of the transverse colon remains and may be reactive related to the adjacent ascites, related to hypoproteinemia, or persistent colitis. No bowel enlarge ment to suggest obstruction. OTHER: Within the inferior vena cava there is an abrupt transition from opacification to nonopacifica tion infrarenally that may relate to admixing of contrast, however lower extremity venous ultrasound is recommended to ensure this does not represent thrombosis as no opacification is seen at the level of the common femoral veins. Moderate volume simple fluid attenuated abdominopelvic ascites surrounds multiple loops of large and small bowel. Extensive haziness of the mesentery is seen that could relate to mesenteric venous conge stion although omental neoplastic process is also possible. IMPRESSION: 1. NEWLY ACCUMULATED MODERATE ABDOMINAL PELVIC ASCITES WITH EXTENSIVE FAT STRANDING WITHIN THE MESENT [place]. ADDITIONALLY NODULAR CONTOUR OF THE LIVER SUGGEST UNDERLYING HEPATOCELLULAR DISEASE. GIVEN THE P ATIENT'S ABDOMINAL PAIN SINCE THE PRIOR CHOLECYSTECTOMY THE POSSIBILITY OF BILIARY LEAK SHOULD BE EXC LUDED AND HIDA SCAN COULD BE PERFORMED FOR FURTHER EVALUATION. ALTERNATIVELY THE FINDINGS COULD RELAT E TO MESENTERIC VENOUS CONGESTION FROM HEPATOCELLULAR DISEASE OR NEOPLASM. 2. RIGHT LOWER QUADRANT ADENOPATHY HAS NEARLY RESOLVED ALTHOUGH PROMINENT LYMPH NODES ARE NOW SEEN IN THE PARAESOPHAGEAL REGION, AROUND THE LESSER CURVATURE OF THE STOMACH AND PERIPORTAL REGION. THESE A RE LIKELY RELATED TO THE ABOVE FINDINGS. 3. LACK OF CONTRAST WITHIN THE INTRARENAL INFERIOR VENA CAVA IS MOST COMMONLY RELATED ADMIXING OF CON TRAST, HOWEVER GIVEN THE ABOVE FINDINGS IN EVALUATION WITH DOPPLER ULTRASOUND OF THE LOWER EXTREMITIE S IS RECOMMENDED TO EXCLUDE BLOOD CLOT. 4. PERSISTENT BOWEL WALL THICKENING OF THE TRANSVERSE COLON THAT COULD RELATE TO PERSISTENT INFECTIOU S/INFLAMMATORY COLITIS, HYPERPROTEINEMIA, OR MAY BE REACTIVE TO THE ADJACENT ASCITES. 5. NEW TRACE LEFT PLEURAL EFFUSION. A Yellow message has been communicated to Shirley Severino MD via the [employer] Critical Result system on 10/14/2017 2:32 PM, Message ID [id number].
== END | disposition home or self-care (01) ==
LOC: RADCTMAIN 12:13
PROVIDERS: ATTEND Internal Medicine Gastroenterology
DX: K63.89 Other specified diseases of intestine (principal); R18.8 Other ascites; R59.0 Localized enlarged lymph nodes; K76.89 Other specified diseases of liver; Z90.49 Acquired absence of other specified parts of digestive tract
CPT/HCPCS: 74177; Q9967

== ENCOUNTER 2017-11-03 10:59 | Day surgery (SDC) | payer OTHER ==
[2017-11-03 12:40] VITALS: RESP 14; TEMP 98.5
[2017-11-03 12:59] LABS: Partial Thromboplastin Time 23.8 sec (22.0-30.0)
[2017-11-03 13:06] LABS: INR 1.3 (<1.2)
[2017-11-03 14:06] VITALS: BP 106/72; PULSE 91
--- NOTE | 2017-11-03 15:02 | US ---
EXAMINATION TYPE: US paracentesis abd w/image DATE OF EXAM: 11/03/2017 COMPARISON: NONE HISTORY: Ascites. PROCEDURE: Maximal barrier technique was utilized. The skin overlying a suitable pocket of fluid was localized with ultrasound and the overlying skin was prepped and draped. Ultrasound was utilized with sterile technique. Lidocaine was used for local anesthesia and a skin angel made with a scalpel. Catheter was advanced under direct ultrasound guidance into a suitable pocket of fluid, minimal fluid returned how ever, access was repeated with a 5 [place] catheter at the same site and advanced under ultrasound melody dance, needle removed and approximately 2.3 liters of serous fluid were removed. Catheter was withdr awn and hemostasis achieved. There is no immediate complication; the patient is discharged in stable condition. IMPRESSION: STATUS POST ULTRASOUND GUIDED PARACENTESIS FOR PALLIATION OF ASCITES. THIS PROCEDURE WA S PERFORMED BY THE UNDERSIGNED.
== END 2017-11-03 14:16 | disposition home or self-care (01) ==
LOC: RADPROMAIN 10:59
PROVIDERS: ATTEND Internal Medicine Hematology & Oncology
DX: R18.8 Other ascites (principal); C22.1 Intrahepatic bile duct carcinoma
CPT/HCPCS: 49083; 85610; 85730

== ENCOUNTER 2017-11-14 03:37 | Emergency (ER) | payer OTHER ==
[2017-11-14] MEDS ORDERED: SODIUM CHLORIDE 0.9% 500 ML IV STA (03:56)
[2017-11-14] MEDS ORDERED: ONDANSETRON 4 MG/2 ML VIAL IVP STA (03:56)
--- NOTE | 2017-11-14 04:14 | ED ---
Nausea/Vomiting/Diarrhea HPI - General Chief complaint: Nausea/Vomiting/Diarrhea Stated complaint: Vomiting Time Seen by Provider: 11/14/17 03:55 Source: patient Mode of arrival: wheelchair Limitations: no limitations - History of Present Illness Initial comments: This patient is 60-year-old man who has had hours of continuous vomiting bilious material. 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 The patient is denying any change in his underlying abdominal pain. He has not noted any blood or coffee-ground material. The patient does have ondansetron and dry to take this medication but not able to keep the swelling pills down. MD complaint: nausea, vomiting -: hour(s) Description of Vomiting: watery, bilious Associated Abdominal Pain: No Improves with: none Worsens with: none Associated Symptoms: nausea/vomiting - Related Data Home Medications Medication Instructions Recorded Confirmed Aspirin [Adult Low Dose Aspirin EC] 81 mg PO HS 05/30/17 11/02/17 Metoprolol Tartrate 25 mg PO BID 05/30/17 11/02/17 Omeprazole [PriLOSEC] 40 mg PO DAILY 05/30/17 11/02/17 Vitamin E (Dl,Tocopheryl Acet) 400 unit PO HS 06/28/17 11/02/17 [Vitamin E] HYDROcodone/APAP 5-325MG [[place] 1 tab PO Q8H PRN 11/02/17 11/02/17 5-325] Lactulose [Cephulac] 20 gm PO BID 11/02/17 11/02/17 Zolpidem Tartrate [Ambien] 5 mg PO HS 11/02/17 11/02/17 Milk Thistle 150 mg PO DAILY 11/03/17 11/03/17 Nicotine 14Mg/24Hr Patch [Habitrol] 1 patch TRANSDERM DAILY 11/03/17 11/03/17 Allergies Allergy/AdvReac Type Severity Reaction Status Date / Time No Known Allergies Allergy Verified 11/02/17 13:11 Review of Systems ROS Statement: Those systems with pertinent positive or pertinent negative responses have been documented in the HPI. ROS Other: All systems not noted in ROS Statement are negative. Constitutional: Denies: fever, chills Respiratory: Denies: cough, dyspnea Cardiovascular: Denies: chest pain, palpitations, syncope Gastrointestinal: Reports: nausea, vomiting. Denies: diarrhea, hematemesis, melena, hematochezia Genitourinary: Denies: dysuria Musculoskeletal: Denies: back pain Skin: Denies: rash Neurological: Denies: weakness, numbness Past Medical History Past Medical History: Coronary Artery Disease (CAD), Cancer, COPD, GERD/Reflux, Hyperlipidemia, Hypertension, Myocardial Infarction (SC), Osteoarthritis (OA), Pneumonia Additional Past Medical History / Comment(s): Having rt upper quad abdominal pain, recent admission for pancreatitis,infection in the intestines.Pneumonia twice as a child. colon ca with omental caking, bile duct CA Last Myocardial Infarction Date:: 2015 History of Any Multi-Drug Resistant Organisms: None Reported Past Surgical History: Adenoidectomy, Back Surgery, Cholecystectomy, Heart Catheterization With Stent, Tonsillectomy Additional Past Surgical History / Comment(s): PCI with stent in 2016 at [facility], colonoscopy,dental implants. Past Anesthesia/Blood Transfusion Reactions: No Reported Reaction, Motion Sickness Additional Past Anesthesia/Blood Transfusion Reaction / Comment(s): no hx blood transfusion Date of Last Stent Placement:: 2015 Past Psychological History: No Psychological Hx Reported Smoking Status: Former smoker Past Alcohol Use History: None Reported Past Drug Use History: None Reported - Past Family History Father Family Medical History: Myocardial Infarction (SC), Pneumonia Additional Family Medical History / Comment(s): Father at the age of 52 yrs from a SC/pneumonia. Mother Family Medical History: Myocardial Infarction (SC) Additional Family Medical History / Comment(s): Mother at the age of 67yrs from a SC. Brother(s) Family Medical History: No Reported History Additional Family Medical History / Comment(s): Patient has 2 brothers with no major medical problems. Sister(s) Family Medical History: Diabetes Mellitus Additional Family Medical History / Comment(s): Patient has 5 sisters and older one has diabetes and obesity. Daughter(s) Family Medical History: No Reported History Additional Family Medical History / Comment(s): Patient has 6 daughters with no major medical problems. Son(s) Family Medical History: No Reported History Additional Family Medical History / Comment(s): Patient has one step-son. General Exam Limitations: no limitations General appearance: alert, in no apparent distress Head exam: Present: atraumatic, normocephalic Eye exam: Present: normal appearance. Absent: scleral icterus, conjunctival injection ENT exam: Present: mucous membranes dry Respiratory exam: Present: normal lung sounds bilaterally. Absent: respiratory distress, wheezes, rales, rhonchi, stridor Cardiovascular Exam: Present: normal rhythm, tachycardia (Rate approximately 112 ), normal heart sounds. Absent: systolic murmur, diastolic murmur, rubs, gallop GI/Abdominal exam: Present: soft, diminished bowel sounds. Absent: distended, tenderness, guarding, rebound, rigid, mass, pulsatile mass, hernia Extremities exam: Present: normal inspection, normal capillary refill. Absent: pedal edema, calf tenderness Back exam: Present: normal inspection. Absent: CVA tenderness (R), CVA tenderness (L) Neurological exam: Present: alert Skin exam: Present: warm, dry, intact, normal color. Absent: rash Course Vital Signs 11/14/17 11/14/17 03:42 06:25 Temperature 98.6 F 98.3 F Pulse Rate 120 H 117 H Respiratory 16 18 Rate Blood Pressure 110/68 109/63 O2 Sat by Pulse 98 96 Oximetry Medical Decision Making - Medical Decision Making Patient is feeling much better following medical therapy here. He is requesting to go home and follow-up with his physician. He is tolerating oral intake. Vital signs are stable and patient's labs do not show marked abnormalities. - Lab Data Result diagrams: 11/14/17 04:26 11/14/17 04:26 Lab Results 11/14/17 11/14/17 11/14/17 Range/Units 04:26 04:26 04:54 WBC 11.5 H (3.8-10.6) k/uL RBC 5.29 (4.30-5.90) m/uL Hgb 13.3 (13.0-17.5) gm/dL Hct 40.8 (39.0-53.0) % MCV 77.3 L (80.0-100.0) fL MCH 25.2 (25.0-35.0) pg MCHC 32.6 (31.0-37.0) g/dL RDW 14.2 (11.5-15.5) % Plt Count 445 (150-450) k/uL Neutrophils % 93 % Lymphocytes % 4 % Monocytes % 1 % Eosinophils % 2 % Basophils % 0 % Neutrophils # 10.6 H (1.3-7.7) k/uL Lymphocytes # 0.5 L (1.0-4.8) k/uL Monocytes # 0.1 (0-1.0) k/uL Eosinophils # 0.2 (0-0.7) k/uL Basophils # 0.0 (0-0.2) k/uL Sodium 132 L (137-145) mmol/L Potassium 4.4 (3.5-5.1) mmol/L Chloride 93 L (98-107) mmol/L Carbon Dioxide 30 (22-30) mmol/L Anion Gap 9 mmol/L BUN 22 H (9-20) mg/dL Creatinine 0.80 (0.66-1.25) mg/dL Est GFR (MDRD) Af Amer >60 (>60 ml/min/1.73 sqM) Est GFR (MDRD) Non-Af >60 (>60 ml/min/1.73 sqM) Glucose 133 H (74-99) mg/dL Calcium 9.1 (8.4-10.2) mg/dL Total Bilirubin 1.1 (0.2-1.3) mg/dL AST 55 (17-59) U/L ALT 73 H (21-72) U/L Alkaline Phosphatase 156 H (38-126) U/L Total Protein 6.3 (6.3-8.2) g/dL Albumin 3.0 L (3.5-5.0) g/dL Amylase <30 L (30-110) U/L Lipase 142 (23-300) U/L Urine Color Yellow Urine Appearance Clear (Clear) Urine pH 6.0 (5.0-8.0) Ur Specific Pony 1.028 (1.001-1.035) Urine Protein 1+ H (Negative) Urine Glucose (UA) Negative (Negative) Urine Ketones 1+ H (Negative) Urine Blood Negative (Negative) Urine Nitrite Negative (Negative) Urine Bilirubin 1+ H (Negative) Urine Urobilinogen 4.0 (<2.0) mg/dL Ur Leukocyte Esterase Negative (Negative) Urine RBC 3 (0-5) /hpf Urine WBC 5 (0-5) /hpf Ur Squamous Epith Cells 1 (0-4) /hpf Hyaline Casts 3 H (0-2) /lpf Urine Mucus Few H (None) /hpf Disposition Clinical Impression: Nausea & vomiting Disposition: HOME SELF-CARE Condition: Fair Referrals: Jean Marshall DO [Primary Care Provider] - 1-2 days
[2017-11-14] MEDS ORDERED: HYDROmorphone 1 MG/ML 1 ML SYRINGE IVP STA (04:32)
[2017-11-14 04:36] LABS: Basophils % (A) 0 %; Eosinophils # (A) 0.2 k/uL (0-0.7); Eosinophils % (A) 2 %; HCT 40.8 % (39.0-53.0); HGB 13.3 gm/dL (13.0-17.5); Lymphocytes # (A) 0.5 k/uL (1.0-4.8); Lymphocytes % (A) 4 %; MCH 25.2 pg (25.0-35.0); MCHC 32.6 g/dL (31.0-37.0); MCV 77.3 fL (80.0-100.0); Mean Platelet Volume 7.5; Monocytes # (A) 0.1 k/uL (0-1.0); Monocytes % (A) 1 %; Neutrophils # (A) 10.6 k/uL (1.3-7.7); Neutrophils % (A) 93 %; Platelet Count 445 k/uL (150-450); RBC 5.29 m/uL (4.30-5.90); RDW 14.2 % (11.5-15.5); WBC 11.5 k/uL (3.8-10.6)
--- NOTE | 2017-11-14 04:45 | XR ---
EXAM: XR Abdomen, 1 View CLINICAL HISTORY: Reason: pain TECHNIQUE: Frontal supine view of the abdomen/pelvis. COMPARISON: 10/17/17 FINDINGS: Nonobstructive bowel gas pattern. No organomegaly or soft tissue mass. Osseous structures are intact. Tubing projects to the right of the lumbar spine. IMPRESSION: Nonobstructive bowel gas pattern. Tubing projects to the right of the lumbar spine. Unclear the exact location of this tubing. Correlate clinically.
[2017-11-14 04:46] LABS: ALT 73 U/L (21-72); AST 55 U/L (17-59); Alkaline Phosphatase 156 U/L (38-126); Amylase <30 U/L (30-110); Anion Gap 9 mmol/L; Blood Urea Nitrogen 22 mg/dL (9-20); Calcium 9.1 mg/dL (8.4-10.2); Carbon Dioxide 30 mmol/L (22-30); Chloride 93 mmol/L (98-107); Glucose 133 mg/dL (74-99); Lipase 142 U/L (23-300); Potassium 4.4 mmol/L (3.5-5.1); Sodium 132 mmol/L (137-145); Total Bilirubin 1.1 mg/dL (0.2-1.3); Total Protein 6.3 g/dL (6.3-8.2)
[2017-11-14] MEDS ORDERED: SODIUM CHLORIDE 0.9% 1,000 ML IV ONE (05:12)
[2017-11-14 05:15] LABS: Appearance,Urine Clear (Clear); Bilirubin,Urine 1+ (Negative); Blood,Urine Negative (Negative); Color,Urine Yellow; Glucose,Urine (UA) Negative (Negative); Hyaline Casts,Urine 3 /lpf (0-2); Ketones,Urine 1+ (Negative); Leukocyte Esterase,Urine Negative (Negative); Mucus,Urine Few /hpf; Nitrite,Urine Negative (Negative); Protein,Urine 1+ (Negative); RBC,Urine 3 /hpf (0-5); Specific Gravity,Urine 1.028 (1.001-1.035); Squamous Epithelial Cell,Urine 1 /hpf (0-4); WBC,Urine 5 /hpf (0-5)
[2017-11-14 06:26] VITALS: BP 109/63; PULSE 117; RESP 18; TEMP 98.3
== END 2017-11-14 06:27 | disposition home or self-care (01) ==
LOC: EC 03:37
DX: R11.2 Nausea with vomiting, unspecified (principal); K21.9 Gastro-esophageal reflux disease without esophagitis; I25.2 Old myocardial infarction; I10 Essential (primary) hypertension; M19.90 Unspecified osteoarthritis, unspecified site; Z85.038 Personal history of other malignant neoplasm of large intestine; Z85.09 Personal history of malignant neoplasm of other digestive organs; Z90.49 Acquired absence of other specified parts of digestive tract; Z87.891 Personal history of nicotine dependence; Z79.82 Long term (current) use of aspirin; Z79.899 Other long term (current) drug therapy
CPT/HCPCS: 99284; 96374; 96375; 96361 ×2; 96360; 36415; 80053; 82150; 83690; 85025; 81001; 74000; J2405; J1170

== ENCOUNTER 2017-11-18 16:43 | Emergency (ER) | payer OTHER ==
[2017-11-18 17:17] VITALS: TEMP 97.2
[2017-11-18] MEDS ORDERED: SODIUM CHLORIDE 0.9% 1,000 ML IV ONE ×2 (17:33→20:18)
[2017-11-18] MEDS ORDERED: PANTOPRAZOLE 40 MG/10 ML VIAL IVP ONE (17:34)
[2017-11-18] MEDS ORDERED: SODIUM CHLORIDE 0.9% 1,000 ML IV SCH (17:45)
[2017-11-18 17:57] LABS: HCT 36.3 % (39.0-53.0); MCH 25.5 pg (25.0-35.0); MCHC 33.1 g/dL (31.0-37.0); Mean Platelet Volume 7.2; RBC 4.72 m/uL (4.30-5.90); RDW 14.1 % (11.5-15.5)
[2017-11-18] MEDS ORDERED: ONDANSETRON 4 MG/2 ML VIAL IVP STA (17:57)
[2017-11-18 17:58] LABS: Platelet Count 189 k/uL (150-450)
[2017-11-18 18:03] LABS: INR 1.2 (<1.2); Partial Thromboplastin Time 25.1 sec (22.0-30.0); Prothrombin Time 11.6 sec (9.0-12.0)
[2017-11-18 18:07] LABS: Albumin 2.9 g/dL (3.5-5.0); Calcium 8.4 mg/dL (8.4-10.2); Magnesium 2.3 mg/dL (1.6-2.3); Potassium 3.2 mmol/L (3.5-5.1); Total Bilirubin 2.2 mg/dL (0.2-1.3)
[2017-11-18] MEDS ORDERED: HYDROmorphone 1 MG/ML 1 ML SYRINGE IVP STA (18:32)
[2017-11-18 18:38] LABS: Band Neutrophils % 7 %; Lymphocytes # (M) 0.84 k/uL (1.0-4.8); Neutrophils % (M) 86 %; Nucleated Red Blood Cells 0 /100 WBC (0-0); Total Cells Counted 100
--- NOTE | 2017-11-18 18:52 | ED ---
General Adult HPI - General Chief complaint: Recheck/Abnormal Lab/Rx Stated complaint: Abnormal Labs Sent from [facility] Time Seen by Provider: 11/18/17 17:18 Source: patient Mode of arrival: wheelchair Limitations: no limitations - History of Present Illness Initial comments: This is a 62-year-old male with a history of biliary carcinoma who presents emergency department for a 2 g drop in his hemoglobin over the last 24 hours. The patient states that he has been vomiting up dark vomit. He also admits to right upper quadrant pain which is chronic due to his cancer. He states that he is never had anything like this before. He states that he is having bowel movements. Denies taking any blood thinners. No lightheadedness or chest pain. No shortness of breath. No other acute complaints. - Related Data Home Medications Medication Instructions Recorded Confirmed Aspirin [Adult Low Dose Aspirin EC] 81 mg PO HS 05/30/17 11/18/17 Metoprolol Tartrate 25 mg PO BID 05/30/17 11/18/17 Omeprazole [PriLOSEC] 40 mg PO DAILY 05/30/17 11/18/17 Vitamin E (Dl,Tocopheryl Acet) 400 unit PO HS 06/28/17 11/18/17 [Vitamin E] Milk Thistle 150 mg PO DAILY 11/03/17 11/18/17 Cyanocobalamin (Vitamin B-12) 1,000 mcg PO DAILY 11/18/17 11/18/17 [Vitamin B-12] HYDROmorphone [Dilaudid] 2 - 4 mg PO Q4HR PRN 11/18/17 11/18/17 Ondansetron [Zofran ODT] 8 mg PO Q6HR PRN 11/18/17 11/18/17 fentaNYL 25MCG/HR PATCH [Duragesic 1 patch TRANSDERM Q72H 11/18/17 11/18/17 25MCG/HR] Allergies Allergy/AdvReac Type Severity Reaction Status Date / Time No Known Allergies Allergy Verified 11/18/17 17:41 Review of Systems ROS Statement: Those systems with pertinent positive or pertinent negative responses have been documented in the HPI. ROS Other: All systems not noted in ROS Statement are negative. Past Medical History Past Medical History: Coronary Artery Disease (CAD), Cancer, COPD, GERD/Reflux, Hyperlipidemia, Hypertension, Myocardial Infarction (NE), Osteoarthritis (OA), Pneumonia Additional Past Medical History / Comment(s): Having rt upper quad abdominal pain, recent admission for pancreatitis,infection in the intestines.Pneumonia twice as a child. colon ca with omental caking, bile duct CA Last Myocardial Infarction Date:: 2015 History of Any Multi-Drug Resistant Organisms: None Reported Past Surgical History: Adenoidectomy, Back Surgery, Cholecystectomy, Heart Catheterization With Stent, Tonsillectomy Additional Past Surgical History / Comment(s): PCI with stent in 2016 at [facility], colonoscopy,dental implants. Past Anesthesia/Blood Transfusion Reactions: No Reported Reaction, Motion Sickness Additional Past Anesthesia/Blood Transfusion Reaction / Comment(s): no hx blood transfusion Date of Last Stent Placement:: 2015 Past Psychological History: No Psychological Hx Reported Smoking Status: Former smoker Past Alcohol Use History: None Reported Past Drug Use History: None Reported - Past Family History Father Family Medical History: Myocardial Infarction (NE), Pneumonia Additional Family Medical History / Comment(s): Father at the age of 52 yrs from a NE/pneumonia. Mother Family Medical History: Myocardial Infarction (NE) Additional Family Medical History / Comment(s): Mother at the age of 67yrs from a NE. Brother(s) Family Medical History: No Reported History Additional Family Medical History / Comment(s): Patient has 2 brothers with no major medical problems. Sister(s) Family Medical History: Diabetes Mellitus Additional Family Medical History / Comment(s): Patient has 5 sisters and older one has diabetes and obesity. Daughter(s) Family Medical History: No Reported History Additional Family Medical History / Comment(s): Patient has 6 daughters with no major medical problems. Son(s) Family Medical History: No Reported History Additional Family Medical History / Comment(s): Patient has one step-son. General Exam - General Exam Comments Initial Comments: Constitutional: Awake alert Appears comfortable Head: Normocephalic atraumatic Eyes: no conjunctival injection No scleral icterus EOMI, conjunctival pallor Neck: No JVD Supple Heart: Tachycardia with regular rhythm normal S1-S2 no murmurs Lungs: Clear to auscultation bilaterally No wheezing No rales Abdomen: Soft nondistended tenderness to palpation in the right upper quadrant Extremities: Non edematous DP pulses intact Radial pulses intact Neuro: A&Ox3 No focal neurologic deficits Psych: Appropriate mood and affect Limitations: no limitations Course Vital Signs 11/18/17 11/18/17 17:14 18:17 Temperature 97.2 F L Pulse Rate 53 L 112 H Respiratory 20 16 Rate Blood Pressure 85/53 93/59 O2 Sat by Pulse 96 94 L Oximetry EKG Findings - EKG Comments: EKG Findings:: EKG showing sinus tachycardia with a rate of 107. No abnormal ST segment changes or T-wave inversions. QTC is 499. Other intervals normal. No ectopy. Medical Decision Making - Medical Decision Making Is a 60-year-old male with a history of cholangiocarcinoma who presents emergency department for nausea vomiting and hemoglobin drop. The patient was vomiting coffee grounds. NG tube was placed and he filled a whole canister. He will here is 12. Blood pressure was borderline and heart rate was elevated. He was given fluids. X-ray of his abdomen did not show any evidence for obstruction. Due to the patient's symptoms is going to be admitted the hospital for monitoring of his hemoglobin. I spoke with Dr. Campos who would like Dr. Koo on consult for GI. The patient was going to [facility] for monitoring. - Lab Data Result diagrams: 11/18/17 17:44 11/18/17 17:44 Lab Results 11/18/17 11/18/17 11/18/17 Range/Units 17:44 17:44 17:44 WBC 12.0 H (3.8-10.6) k/uL RBC 4.72 (4.30-5.90) m/uL Hgb 12.0 L (13.0-17.5) gm/dL Hct 36.3 L (39.0-53.0) % MCV 77.0 L (80.0-100.0) fL MCH 25.5 (25.0-35.0) pg MCHC 33.1 (31.0-37.0) g/dL RDW 14.1 (11.5-15.5) % Plt Count 189 D (150-450) k/uL Neutrophils % (Manual) 86 % Band Neutrophils % 7 % Lymphocytes % (Manual) 7 % Neutrophils # (Manual) 11.10 H (1.3-7.7) k/uL Lymphocytes # (Manual) 0.84 L (1.0-4.8) k/uL Nucleated RBCs 0 (0-0) /100 WBC Manual Slide Review Performed PT (9.0-12.0) sec INR (<1.2) APTT (22.0-30.0) sec Sodium 123 L (137-145) mmol/L Potassium 3.2 L (3.5-5.1) mmol/L Chloride 77 L* (98-107) mmol/L Carbon Dioxide 34 H (22-30) mmol/L Anion Gap 12 mmol/L BUN 67 H (9-20) mg/dL Creatinine 1.74 H (0.66-1.25) mg/dL Est GFR (MDRD) Af Amer 48 (>60 ml/min/1.73 sqM) Est GFR (MDRD) Non-Af 40 (>60 ml/min/1.73 sqM) Glucose 163 H (74-99) mg/dL Calcium 8.4 (8.4-10.2) mg/dL Magnesium 2.3 (1.6-2.3) mg/dL Total Bilirubin 2.2 H (0.2-1.3) mg/dL AST 77 H (17-59) U/L ALT 88 H (21-72) U/L Alkaline Phosphatase 231 H (38-126) U/L Total Protein 6.0 L (6.3-8.2) g/dL Albumin 2.9 L (3.5-5.0) g/dL Lipase 233 (23-300) U/L Blood Type A Negative Blood Type Recheck CABO Indicated Antibody Screen NEGATIVE Spec Expiration Date 11/21/2017234311/18/17 Range/Units 17:44 WBC (3.8-10.6) k/uL RBC (4.30-5.90) m/uL Hgb (13.0-17.5) gm/dL Hct (39.0-53.0) % MCV (80.0-100.0) fL MCH (25.0-35.0) pg MCHC (31.0-37.0) g/dL RDW (11.5-15.5) % Plt Count (150-450) k/uL Neutrophils % (Manual) % Band Neutrophils % % Lymphocytes % (Manual) % Neutrophils # (Manual) (1.3-7.7) k/uL Lymphocytes # (Manual) (1.0-4.8) k/uL Nucleated RBCs (0-0) /100 WBC Manual Slide Review PT 11.6 (9.0-12.0) sec INR 1.2 H (<1.2) APTT 25.1 (22.0-30.0) sec Sodium (137-145) mmol/L Potassium (3.5-5.1) mmol/L Chloride (98-107) mmol/L Carbon Dioxide (22-30) mmol/L Anion Gap mmol/L BUN (9-20) mg/dL Creatinine (0.66-1.25) mg/dL Est GFR (MDRD) Af Amer (>60 ml/min/1.73 sqM) Est GFR (MDRD) Non-Af (>60 ml/min/1.73 sqM) Glucose (74-99) mg/dL Calcium (8.4-10.2) mg/dL Magnesium (1.6-2.3) mg/dL Total Bilirubin (0.2-1.3) mg/dL AST (17-59) U/L ALT (21-72) U/L Alkaline Phosphatase (38-126) U/L Total Protein (6.3-8.2) g/dL Albumin (3.5-5.0) g/dL Lipase (23-300) U/L Blood Type Blood Type Recheck Antibody Screen Spec Expiration Date Disposition Clinical Impression: GI bleed, Vomiting Disposition: ADMITTED IP TO THIS HOSP
--- NOTE | 2017-11-18 19:07 | XR ---
EXAMINATION TYPE: XR abdomen acute w cxr DATE OF EXAM: 11/18/2017 COMPARISON: NONE HISTORY: Productive cough with hematochezia. TECHNIQUE: Supine, upright, and left side down lateral decubitus views of the abdomen are obtained. FINDINGS: Enteric tube has been inserted and is cephalad in position with its fenestrated portion. Ab ove the gastroesophageal junction and advancement of at least 12 cm is recommended for optimal placem ent. Right-sided Mediport terminates in the right cavoatrial junction. Lungs are clear without eviden ce of focal consolidation, or pneumothorax. Trace left pleural effusion is present. Cardiac silhouett e is within normal limits. Osseous structures appear intact. Tubing is seen along the right para midline abdomen with cholecystectomy clips. Mild degenerative jules nges of the lumbosacral junction and femoral acetabular joints. No evidence of dilated bowel or pneum operitoneum. IMPRESSION: 1. Cephalad placement of the enteric tube which should be advanced approximately [address] acement. 2. Trace left pleural effusion. 3. Postsurgical changes of the abdomen. Nonobstructive bowel gas pattern.
[2017-11-18] MEDS ORDERED: HYDROmorphone 1 MG/ML 1 ML SYRINGE IVP PRN (19:21)
[2017-11-18] MEDS ORDERED: NALOXONE 0.4 MG/ML 1 ML VIAL IV PRN (19:21)
[2017-11-18] MEDS ORDERED: ONDANSETRON 4 MG/2 ML VIAL IVP PRN (19:21)
[2017-11-18 21:32] VITALS: BP 82/57; PULSE 106; RESP 20
== END 2017-11-18 21:36 | disposition other institution (70) ==
LOC: EC 16:43
DX: K92.2 Gastrointestinal hemorrhage, unspecified (principal); K21.9 Gastro-esophageal reflux disease without esophagitis; I10 Essential (primary) hypertension; I25.2 Old myocardial infarction; M19.90 Unspecified osteoarthritis, unspecified site; I25.10 Atherosclerotic heart disease of native coronary artery without angina pectoris; Z90.49 Acquired absence of other specified parts of digestive tract; Z87.891 Personal history of nicotine dependence; Z85.038 Personal history of other malignant neoplasm of large intestine; Z85.09 Personal history of malignant neoplasm of other digestive organs; Z79.82 Long term (current) use of aspirin; Z79.899 Other long term (current) drug therapy
CPT/HCPCS: 99285; 96374; 96375 ×2; 96361; 36415; 93005; 86900; 86901; 80053; 83690; 83735; 85025; 85610; 85730; 86850; 74022; J2405; J1170; C9113